=== PATIENT | female | born 2000 | race Caucasian/White ===

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

== ENCOUNTER 2022-02-27 08:47 | Outpatient (REF) | payer OTHER, SELFPAY ==
[2022-02-27 09:09] LABS: MANUAL DIFF FLAG NO
[2022-02-27 09:38] LABS: Basophils Percent Auto 0.2 % (0-2); Eosinophils Absolute Auto 0.1 X10*3/uL (0.0-0.4); Eosinophils Percent Auto 0.9 % (0-4); Hematocrit 41.4 % (37.0-47.0); Hemoglobin 12.6 g/dl (12.0-16.0); Imm Gran Abs Auto 0.04 X10*3/uL (0.00-0.03); Imm Gran Pct Auto 0.3 % (0.0-0.4); Lymphocytes Absolute Auto 1.9 X10*3/uL (1.2-4.9); Lymphocytes Percent Auto 16.4 % (20-40); Mean Corpuscular HGB Conc 30.4 g/dl (31.0-35.0); Mean Corpuscular Hemoglobin 24.6 pg (27.0-33.0); Mean Corpuscular Volume 80.9 fL (80.0-98.0); Mean Platelet Volume 10.1 fL (9.4-12.3); Monocytes Absolute Auto 0.7 X10*3/uL (0.1-1.2); Neutrophils Absolute Auto 8.9 x10*3/uL (2.0-8.3); Neutrophils Percent Auto 76.2 % (45-73); Platelet Count 296 X10*3/uL (160-400); Red Blood Count 5.12 X10*6/uL (4.20-5.50); Red Cell Distribution Width 14.9 % (11.0-16.0); White Blood Count 11.6 X10*3/uL (4.8-10.8)
[2022-02-27 10:01] LABS: Estimated Average Glucose 108 mg/dL; Hemoglobin A1c % 5.4 %
[2022-02-27 10:39] LABS: Alanine Aminotransferase 19 U/L (0-31); Albumin Level 3.6 g/dL (3.5-5.0); Alkaline Phosphatase 66 U/L (39-117); Amylase 88 U/L (28-100); Anion Gap 10 (12-20); Aspartate Amino Transferase 8 U/L (5-31); Bilirubin Direct 0.2 mg/dL (0.0-0.5); Bilirubin Total 0.7 mg/dL (0.0-1.0); Blood Urea Nitrogen 12 mg/dL (9-16); Calcium 8.9 mg/dL (8.4-10.2); Carbon Dioxide 24 mmol/L (22-29); Chloride 109 mmol/L (96-108); Estimated Glomerular Filt Rate > 60; Glucose Random 92 mg/dL (60-115); Sodium 139 mmol/L (135-145); Total Protein 6.6 g/dL (6.5-8.0)
== END 2022-02-27 08:48 | disposition home or self-care (01) ==
LOC: HO.LAB 08:47
PROVIDERS: Absent Provider Nurse Practitioner Family; PCP Nurse Practitioner Family; Visit Provider Nurse Practitioner
DX: R10.13 Epigastric pain (principal)
CPT/HCPCS: 36415; 80048; 80076; 82150; 83036; 85025

== ENCOUNTER 2022-04-13 08:08 | Outpatient (REF) | payer OTHER, SELFPAY ==
--- NOTE | ~2022-04-13 | US_ITS ---
EXAMINATION: US ABDOMEN COMPLETE CLINICAL INFORMATION: Epigastric pain. COMPARISON: CT abdomen and pelvis and ultrasound abdomen complete 08/22/2017. TECHNIQUE: Real-time imaging of the abdominal viscera. FINDINGS: PANCREAS: Normal. ABDOMINAL AORTA: The proximal, mid, and distal segments are normal in caliber. INFERIOR VENA CAVA: Visualized portions are normal. LIVER: Normal. The liver is normal in size. The liver contour is normal. Parenchymal echogenicity is normal. No focal hepatic lesion. There is no intrahepatic biliary duct dilatation seen. GALLBLADDER: Normal. The gallbladder is physiologically distended without evidence of stones, sludge, polyps, wall thickening or pericholecystic fluid. COMMON BILE DUCT: Normal in caliber measuring 0.3 cm in diameter. RIGHT KIDNEY: Normal. No hydronephrosis. No renal calculi or focal parenchymal lesions. The kidney measures 12.2 cm in maximum dimension. LEFT KIDNEY: There is an echogenic stone in the lower pole measuring 0.8 x 0.6 x 0.8 cm. A dromedary hump is seen in midpole. Echogenic cortical calcification in midpole measures 0.3 x 0.4 x 0.3 cm. No hydronephrosis or focal parenchymal lesions. The kidney measures 11.5 cm in maximum dimension. SPLEEN: Normal. The spleen measures 11.0 cm in maximum dimension. FREE FLUID: None. US/US abdomen complete IMPRESSION: Nonobstructive echogenic stone and midpole calcification, left kidney.
== END 2022-04-13 08:09 | disposition home or self-care (01) ==
LOC: HO.US 08:08
PROVIDERS: Visit Provider Nurse Practitioner Family
DX: F81.9 Developmental disorder of scholastic skills, unspecified (principal); R10.13 Epigastric pain
CPT/HCPCS: 76700

== ENCOUNTER 2023-12-27 13:02 | Emergency (ER) | payer SELFPAY ==
--- NOTE | ~2023-12-27 | CT_ITS ---
EXAMINATION: CT HEAD WITHOUT CONTRAST CLINICAL INFORMATION: Possible seizure COMPARISON: None available. TECHNIQUE: Contiguous axial imaging was performed from the skull base to vertex without intravenous administration of contrast. This CT examination was performed using dose optimization techniques as appropriate, variously including the following: *Automated exposure control *Adjustment of mA and/or kV according to patient size (this includes techniques or standardized protocols for targeted exams where dose is matched to indication/reason for exam; i.e. extremities or head) *Use of iterative reconstruction technique DLP: 657 mGy-cm FINDINGS: There is no acute intra-axial, extra-axial bleed, masses or midline shift. There is no acute infarction evolution. There is no edema augustine to white matter differentiation is maintained normal. The lateral ventricles are symmetrical in size and configuration without enlargement. No abnormality seen in the posterior fossa on the temporal lobes. Bone windows reveal no calvarial abnormality. There is no scalp soft tissue abnormality. There is complete opacification of left maxillary sinus with mild mucoperiosteal thickening involving bilateral frontal, ethmoidal and sphenoidal sinuses. CT/CT head/brain wo IV con IMPRESSION: 1. No acute intracranial process seen. 2. Chronic pansinusitis. Complete opacification of left maxillary sinus.
[2023-12-27 13:14] VITALS: BP 142/86; BP 179/122; PULSE 114; PULSE 97; RESP 18; TEMP 37.2; O2SAT 97; O2SAT 98; BMI 47.2
--- NOTE | 2023-12-27 13:21 | PC.NURSE ---
patient currently a&o- speaking in full sentences and answering questions appropriately, pt hypertensive, no c/o pain or discomfort, stated she feels anxious and does feel this at times. seizure precautions placed, will continue to monitor
--- NOTE | 2023-12-27 13:28 | ED.GENADULT ---
HPI - General Adult General Chief complaint: General Medical Stated complaint: ?SZ Time Seen by Provider: 12/27/23 13:23 Source: patient, family and EMS Mode of arrival: EMS Limitations: no limitations History of Present Illness HPI narrative: Patient was told earlier in the day that she would be transitioning out of her day program, this upset her. Later in the day she felt hot and took off her sweater, shortly thereafter she did not feel well but states that she did not lose consciousness. According to EMS bystanders noted seizure activity and patient was post ictal afterwards. Onset (ago): minute(s) Associated symptoms: denies other symptoms Related Data Allergies Allergy/AdvReac Type Severity Reaction Status Date / Time No Known Allergies Allergy Verified 12/27/23 13:14 Review of Systems Review of Systems: Yes all other systems are reviewed and are negative Neurologic: Denies Sensory deficit (Neuro) PMFSH Past Medical History Medical History Hypertension Obese Social History Social History Smoked in Last 30 Days: No Use of substances other than those prescribed or required for medical reasons: No Advance Directives: No Advance Directives Information Provided: Yes Patient : No Physical Exam ED Vital Signs: Vital Signs - 24 hr 12/27/23 13:14 12/27/23 19:08 Temperature 98.9 F 98.1 F Pulse Rate 97 94 Respiratory Rate 18 16 Blood Pressure 179/122 H 146/81 H Pulse Oximetry 97 94 Oxygen Delivery Method Room Air Room Air BMI result Body Mass Index 47.2 Const Other: obese female with special needs in no acute distress Nutritional Appearance: obese Orientation/consciousness: oriented to person Limitations: no limitations HENMT Head: Yes normal to inspection Ears: external ears normal General nose exam: Normal external nose present Mouth: Normal oral and palatal mucosa present and oropharynx normal Throat: Yes posterior oropharynx normal Eyes General: appearance normal, both eyes and all related structures Neck Neck: Yes normal visual inspection Chest Chest palpation & inspection: normal inspection of the chest Resp Auscultation: clear to auscultation bilaterally Cardio Jugular venous distension: no JVD Rate: regular rate Rhythm: regular rhythm Heart sounds: S1 normal heart sound present and S2 normal heart sound present GI Inspection: Yes normal to inspection Palpation (GI): Soft to palpation, nontender and No hepatosplenomegaly present Auscultation: normal bowel sounds General: Yes no CVA tenderness Back/Spine/Pelvis Back: no CVA tenderness Skin General skin exam: no rashes or lesions noted Neuro Other: nonfocal neuro exam General: oriented to person Cranial nerves: Yes CN's II-XII intact bilaterally Motor exam (neuro): 5/5 motor strength present throughout Sensory Exam: No Sensory deficit (Neuro) Extrem General: Yes normal to inspection Psych Appearance: grossly normal Course Reevaluation(s) Reevaluation #1: I doubt this is seizure more likely pseudoseizure or anxiety will dc home Time: 18:33 Medical Decision Making Differential Diagnosis Differential Diagnoses: The differential diagnosis associated with the presentation includes (seizure, syncope, arrhythmia, anxiety, pseudoseizure) Admission/Observation Consideration of admission/observation: Escalation of care including admission/observation considered (Upon arrival patient considered for admission) Lab Data MDM Lab Attestation statement: I reviewed the patient's lab results. urine is contaminated will not treat 12/27/23 15:33 12/27/23 15:33 Labs: Lab Results 12/27/23 12/27/23 12/27/23 Range/Units 15:33 17:37 17:38 WBC 9.8 (4.8-10.8) X10*3/uL RBC 5.69 H (4.20-5.50) X10*6/uL Hgb 14.1 (12.0-16.0) g/dl Hct 45.8 (37.0-47.0) % MCV 80.5 (80.0-98.0) fL MCH 24.8 L (27.0-33.0) pg MCHC 30.8 L (31.0-35.0) g/dl RDW 15.7 (11.0-16.0) % Plt Count 316 (160-400) X10*3/uL MPV 9.8 (9.4-12.3) fL Immature Gran % (Auto) 0.2 (0.0-0.4) % Neut % (Auto) 64.5 (45-73) % Lymph % (Auto) 25.8 (20-40) % [place] % (Auto) 5.8 (2-11) % Eos % (Auto) 3.3 (0-4) % Baso % (Auto) 0.4 (0-2) % Lymph # (Auto) 2.5 (1.2-4.9) X10*3/uL [place]eller # (Auto) 0.6 (0.1-1.2) X10*3/uL Eos # (Auto) 0.3 (0.0-0.4) X10*3/uL Baso # (Auto) 0.0 (0.0-0.2) X10*3/uL Abs Immat Gran (auto) 0.02 (0.00-0.03) X10*3/uL Absolute Neuts (auto) 6.3 (2.0-8.3) x10*3/uL Absolute Nucleated RBC 0.000 (0.0-0.012) X10*3/uL Nucleated RBC % (auto) 0.0 (0.0-0.2) /100WBC Sodium 142 (135-145) mmol/L Potassium 3.9 (3.3-5.1) mmol/L Chloride 108 (96-108) mmol/L Carbon Dioxide 26 (22-29) mmol/L Anion Gap 12 (12-20) BUN 14 (9-16) mg/dL Creatinine 0.76 (0.5-1.4) mg/dL Estim Creat Clear Calc 136.9 Estimated GFR > 60 Random Glucose 84 (60-115) mg/dL Calcium 9.0 (8.4-10.2) mg/dL Urine Color Yellow Urine Appearance Clear Urine pH 7.0 (5.0-9.0) Ur Specific [place] 1.015 (1.005-1.025) Urine Protein Negative (Neg-Trace) mg/dL Urine Glucose (UA) Negative (Negative) mg/dL Urine Ketones Negative (Negative) mg/dL Urine Blood Negative (Negative) Urine Nitrite Negative (Negative) Ur Leukocyte Esterase Trace H (Negative) Urine RBC 0-2 (0-2) /HPF Urine WBC 6-10 H (0-5) /HPF Ur Squamous Epith Cells 3-5 (0-2) /HPF Urine Bacteria 1+ (None Seen) Hyaline Casts 0-2 (0-2) /LPF Urine Test NEGATIVE (NEGATIVE) Independent Interpretation I performed an independent interpretation of an: EKG (sinus 85, no st or twave changes) and CT Scan (head: old changes no blood no mass) Radiology Impression Discussion of test interpretation with radiology: I have reviewed the radiologist's reading. Independent Historian Clinical information obtained from an independent historian. History obtained from or confirmed by: Parent and EMS Chronic Conditions Patient?s care impacted by: Other (special needs) Discharge Plan Discharge Clinical Impression: Seizure, Anxiety Patient Disposition: Home, Self-Care Instructions: Nonepileptic Seizures (ED), Anxiety (ED) Referrals: Tracy Dunbar [Primary Care Provider] - 5 days
--- NOTE | 2023-12-27 13:29 | ECG_ITS ---
Test Reason : QUESTION SYNCOPE Blood Pressure : / mmHG Vent. Rate : 086 BPM Atrial Rate : 086 BPM P-R Int : 128 ms QRS Dur : 094 ms QT Int : 388 ms P-R-T Axes : 028 003 054 degrees QTc Int : 464 ms Normal sinus rhythm Minimal voltage criteria for LVH, may be normal variant ( R in aVL ) Borderline ECG When compared with ECG of 05-MAY-2021 20:09, No significant change was found Referred By: Anibal Burger Electronically Signed By:JOHANA FINCH
--- NOTE | 2023-12-27 14:51 | PC.NURSE ---
phlebotomy has been called to obtain labs, provider has been notified
[2023-12-27 15:36] LABS: MANUAL DIFF FLAG NO
[2023-12-27 15:42] LABS: Basophils Percent Auto 0.4 % (0-2); Eosinophils Absolute Auto 0.3 X10*3/uL (0.0-0.4); Eosinophils Percent Auto 3.3 % (0-4); Hematocrit 45.8 % (37.0-47.0); Hemoglobin 14.1 g/dl (12.0-16.0); Imm Gran Abs Auto 0.02 X10*3/uL (0.00-0.03); Imm Gran Pct Auto 0.2 % (0.0-0.4); Lymphocytes Absolute Auto 2.5 X10*3/uL (1.2-4.9); Lymphocytes Percent Auto 25.8 % (20-40); Mean Corpuscular HGB Conc 30.8 g/dl (31.0-35.0); Mean Corpuscular Hemoglobin 24.8 pg (27.0-33.0); Mean Corpuscular Volume 80.5 fL (80.0-98.0); Mean Platelet Volume 9.8 fL (9.4-12.3); Monocytes Absolute Auto 0.6 X10*3/uL (0.1-1.2); Monocytes Percent Auto 5.8 % (2-11); Neutrophils Absolute Auto 6.3 x10*3/uL (2.0-8.3); Neutrophils Percent Auto 64.5 % (45-73); Platelet Count 316 X10*3/uL (160-400); Red Blood Count 5.69 X10*6/uL (4.20-5.50); Red Cell Distribution Width 15.7 % (11.0-16.0); White Blood Count 9.8 X10*3/uL (4.8-10.8)
[2023-12-27 15:49] LABS: Anion Gap 12 (12-20); Blood Urea Nitrogen 14 mg/dL (9-16); Carbon Dioxide 26 mmol/L (22-29); Chloride 108 mmol/L (96-108); Creatinine Clr Calc Pharmacy 136.9; Estimated Glomerular Filt Rate > 60; Glucose Random 84 mg/dL (60-115); Potassium 3.9 mmol/L (3.3-5.1); Sodium 142 mmol/L (135-145)
[2023-12-27 17:46] LABS: Appearance Urine Clear; Color Urine Yellow; Glucose Urine UA Negative (Negative); Leukocyte Esterase Urine Trace (Negative); Nitrite Urine Negative (Negative); Specific Gravity - Urine 1.015 (1.005-1.025); UMIC TRIGGER UACC YES; Urine Blood Negative (Negative); Urine Ketones Negative (Negative); Urine Protein Negative (Neg-Trace)
[2023-12-27 17:48] LABS: UPreg QC Valid YES; Urine Pregnancy NEGATIVE (NEGATIVE)
[2023-12-27 17:50] LABS: Bacteria Urine 1+ (None Seen); Hyaline Casts Urine 0-2 /LPF (0-2); RBC Urine 0-2 /HPF (0-2); UACC Culture Trigger YES
[2023-12-27 19:08] VITALS: BP 146/81; PULSE 94; RESP 16; TEMP 36.7; O2SAT 94
== END 2023-12-27 20:01 | disposition home or self-care (01) ==
PROVIDERS: Emergency Provider Emergency Medicine; PCP Nurse Practitioner Family
DX: R56.9 Unspecified convulsions (principal); F41.9 Anxiety disorder, unspecified; I10 Essential (primary) hypertension
CPT/HCPCS: 36415; 70450; 80048; 81001; 81025; 85025; 87086; 93005; 99284

== ENCOUNTER → 2023-12-27 13:29 | Outpatient (BNV) | payer SELFPAY | PROVIDERS: Emergency Provider Emergency Medicine; PCP Nurse Practitioner Family; Visit Provider Internal Medicine | DX: R55 Syncope and collapse (principal) | CPT/HCPCS: 93010 ==

== ENCOUNTER 2024-07-26 07:38 | Emergency (ER) | payer OTHER, SELFPAY ==
--- NOTE | ~2024-07-26 | CT_ITS ---
EXAMINATION: CT ABDOMEN AND PELVIS WITHOUT CONTRAST CLINICAL INFORMATION: Left flank pain. Rule out stone COMPARISON: August 22, 2017 TECHNIQUE: Multidetector volumetric imaging was performed from the superior aspect of the liver through the pubic symphysis. Sagittal and coronal reformatted images were obtained on the technologist's workstation. This CT examination was performed using dose optimization techniques as appropriate, variously including the following: *Automated exposure control *Adjustment of mA and/or kV according to patient size (this includes techniques or standardized protocols for targeted exams where dose is matched to indication/reason for exam; i.e. extremities or head) *Use of iterative reconstruction technique DLP: 1141 mGy-cm FINDINGS: LUNG BASES: The visualized lung bases are unremarkable. LIVER, GALLBLADDER, AND BILIARY TREE: Liver is of low attenuation due to hepatic steatosis, without intrahepatic masses or ductal dilatation. The gallbladder is unremarkable with no evidence of radiopaque gallstones, gallbladder wall thickening, or obvious pericholecystic inflammatory changes. PANCREAS: Unremarkable. SPLEEN: Unremarkable. ADRENAL GLANDS: Unremarkable. KIDNEYS AND URETERS: Right kidney is unremarkable. Left kidney revealed mild hydroureteronephrosis due to obstruction of left renal pelvis by 0.7 x 0.9 cm calculus with attenuation of 1380 HU there is very mild perinephric stranding, the left ureters are not dilated BLADDER: Unremarkable. GASTROINTESTINAL TRACT: There is small hiatal hernia.. Stomach. Loops of small bowel and colon are unremarkable appendix is not clearly identified. No evidence of diverticulitis, colitis, diverticulosis. ABDOMINAL WALL: No significant hernia is appreciated. LYMPH NODES: Normal. VASCULAR: Unremarkable. PELVIC VISCERA: Unremarkable. OSSEOUS STRUCTURES: Unremarkable. CT/CT abdomen pelvis wo IV con IMPRESSION: 1. Obstructing calculus in the left renal pelvis with mild hydroureteronephrosis and perinephric stranding. 2. Hepatic steatosis. 3. Small hiatal hernia. Fleischner guidelines were followed. Electronically signed by: Edward Ervin MD 07/26/2024 11:49 AM EDT
[2024-07-26 07:50] VITALS: BP 207/155; PULSE 106; RESP 22; TEMP 37; O2SAT 98; BMI 53.1
[2024-07-26 08:09] VITALS: BP 180/118; PULSE 111; RESP 20; O2SAT 98
--- NOTE | 2024-07-26 08:20 | PC.NURSE ---
pateint arrives through external triage with cc of left flank pain for the last few days, patient presents dry heaving, mom states she has been throwing up all morning. patient endorses a hx of kidney stones and states it feels like she is experiencing another one. states she has difficulty urinating, denies burning or blood in urine, endorsing 10/10 pain right now, denies fevers or recent sick contacts, LSCTA, abdomen soft tender to palpation, 20g PIV placed in LAC by this rn, blood work sent to lab, patient attempted x2 to give urine sample, unable to provide one at this time. provider made aware of patient pain levels and vomiting, will be in to assess.
[2024-07-26 08:22] LABS: MANUAL DIFF FLAG NO
[2024-07-26 08:23] LABS: Basophils Absolute Auto 0.1 X10*3/uL (0.0-0.2); Basophils Percent Auto 0.4 % (0-2); Eosinophils Absolute Auto 0.1 X10*3/uL (0.0-0.4); Eosinophils Percent Auto 0.5 % (0-4); Hematocrit 42.4 % (37.0-47.0); Hemoglobin 13.6 g/dl (12.0-16.0); Imm Gran Abs Auto 0.05 X10*3/uL (0.00-0.03); Imm Gran Pct Auto 0.4 % (0.0-0.4); Lymphocytes Absolute Auto 1.5 X10*3/uL (1.2-4.9); Lymphocytes Percent Auto 11.7 % (20-40); Mean Corpuscular HGB Conc 32.1 g/dl (31.0-35.0); Mean Corpuscular Hemoglobin 25.5 pg (27.0-33.0); Mean Corpuscular Volume 79.5 fL (80.0-98.0); Mean Platelet Volume 9.9 fL (9.4-12.3); Monocytes Absolute Auto 0.6 X10*3/uL (0.1-1.2); Monocytes Percent Auto 4.8 % (2-11); Neutrophils Absolute Auto 10.7 x10*3/uL (2.0-8.3); Neutrophils Percent Auto 82.2 % (45-73); Platelet Count 358 X10*3/uL (160-400); Red Blood Count 5.33 X10*6/uL (4.20-5.50); Red Cell Distribution Width 15.9 % (11.0-16.0); White Blood Count 13.1 X10*3/uL (4.8-10.8)
[2024-07-26 08:39] LABS: Alanine Aminotransferase 44 U/L (0-31); Albumin Level 4.1 g/dL (3.5-5.0); Alkaline Phosphatase 72 U/L (39-117); Anion Gap 15 (12-20); Aspartate Amino Transferase 23 U/L (5-31); Bilirubin Direct 0.2 mg/dL (0.0-0.5); Bilirubin Total 0.5 mg/dL (0.0-1.0); Blood Urea Nitrogen 16 mg/dL (9-16); Calcium 9.4 mg/dL (8.4-10.2); Carbon Dioxide 20 mmol/L (22-29); Chloride 110 mmol/L (96-108); Creatinine Clr Calc Pharmacy 107.8; Estimated Glomerular Filt Rate > 60; Glucose Random 147 mg/dL (60-115); Lipase 13 U/L (8-78); Sodium 141 mmol/L (135-145); Total Protein 8.1 g/dL (6.5-8.0)
--- NOTE | 2024-07-26 09:03 | ED.ABDPAIN ---
HPI - Abdominal Pain General Chief Complaint: Abdominal Pain Stated Complaint: l hip pain-vomiting Time Seen by Provider: 07/26/24 09:02 Source: patient and family Limitations: no limitations History of Present Illness ED Provider: Dr. Ankur Salcedo HPI narrative: 24-year-old history hypertension which is and kidney stones who presents emergency department for evaluation of left flank pain times 1-1/2 weeks. She states that the pain was mild but last night at 23:00 hours the pain became worse. She states that the pain is a constant, sharp pain is if someone is kicking your in her left side. The pain is 9/10 at its worst. She had associated nausea and vomiting. She denied fever, chills, rhinorrhea, sore throat, chest pain, shortness of breath. She denied frequency, urgency or dysuria. She states the pain feels similar to her kidney stone pain that she had in the past. Related Data Previous Rx's ?Medication ?Instructions ?Recorded ketorolac 10 mg tablet 10 mg PO Q6H PRN pain 5 days #20 07/26/24 tabs lisinopril 10 mg tablet 10 mg PO DAILY 90 days #90 tabs 07/26/24 morphine 15 mg immediate release 15 mg PO Q6H PRN pain #10 tabs 07/26/24 tablet morphine 15 mg immediate release 15 mg PO Q8H PRN pain #10 tabs 07/26/24 tablet ondansetron 4 mg disintegrating 4 mg PO Q6-8H PRN nausea and 07/26/24 tablet vomiting #14 tabs Allergies Allergy/AdvReac Type Severity Reaction Status Date / Time No Known Allergies Allergy Verified 07/26/24 07:53 Review of Systems Review of Systems Yes all other systems are reviewed and are negative [facility] Past Medical History Medical History Hypertension Obese Social History Social History Smoked in Last 30 Days: No Use of substances other than those prescribed or required for medical reasons: No Advance Directives: No Advance Directives Information Provided: No Do you have a plan to hurt others: No Plan Physical Exam ED Vital Signs: Vital Signs - 24 hr 07/26/24 07:50 07/26/24 08:09 07/26/24 09:11 Temperature 98.6 F Pulse Rate 106 H 111 H 90 Respiratory Rate 22 H 20 16 Blood Pressure 207/155 H 180/118 H 185/130 H Pulse Oximetry 98 98 Oxygen Delivery Method Room Air Room Air 07/26/24 11:09 Temperature 98.2 F Pulse Rate 86 Respiratory Rate 16 Blood Pressure 141/89 H Pulse Oximetry 96 Oxygen Delivery Method Room Air BMI result Body Mass Index 53.1 Vital signs initially revealed an elevated blood pressure 207/155 but this improved to 140 1/89 after treatment of her pain Exam: General: Awake, alert in no distress, weight 127.6 kg, elevated BMI 53.2 Head: Normocephalic, atraumatic EENT: PERRL, Lids normal, sclera normal, conjunctiva normal, nose normal , ears normal, throat without erythema or exudates Neck: Supple, no adenopathy Lung: breath sounds symmetric, no wheezing, rales or rhonchi Chest: symmetric movement, nontender Heart: regular rate and rhythm, normal S1, S2 no murmurs or rubs Abdomen: soft, non-tender, nondistended, normal bowel sounds Back: no vertebral tenderness, no CVAT Extremities: no deformities, moves all extremities symmetrically Neuro: Awake, alert, oriented, normal speech, cranial nerves intact, moves all extremities symmetrically Psych: Pleasant, cooperative Medical Decision Making Medical Decision Making MDM Narrative: 24-year-old history hypertension which is and kidney stones who presents emergency department for evaluation of left flank pain times 1-1/2 weeks. She states that the pain was mild but last night at 23:00 hours the pain became worse, 9/10 and similar to kidney stone pain that she had in the past. She had associated nausea and vomiting but denied frequency, urgency or dysuria. She denied fever or chills. Patient was untreated hypertension and she did have elevated blood pressures which improved after she received IV Toradol for pain. Physical examination did reveal an elevated BMI of 53.2 otherwise was unremarkable. Differential diagnosis: ?Includes but is not limited to pyelonephritis, kidney stone, ureteral stone, electrolyte abnormalities, anemia Course: 13:46 My interpretation patient's laboratory evaluation is as follows: White blood cell count was elevated 13,100. Patient's glucose was elevated 146. Urine test was negative. Urinalysis was positive for blood and leukocyte esterase. Microscopic revealed greater than 20 RBCs. Patient was 0-5 WBCs, 1+ bacteria and 6-10 squamous cells-this is a non clean catch specimen. CT scan abdomen pelvis without IV contrast revealed an obstructing calculus in the left renal pelvis with mild hydronephrosis and perinephric stranding. The stone measures 7 x 9 mm. 14:11 I did discuss the patient's presentation over tiger text with the covering urologist, Dr. Zamora. The plan will be to discharge the patient home with pain medications and have her follow up as an outpatient for further treatment. The patient will be discharged home with prescriptions for Toradol 10 mg 3 times a day as needed for pain, Zofran 4 mg ODT q.6 hours as needed for nausea vomiting and for pain not relieved by Toradol and Tylenol the patient was given a prescription for morphine 15 mg every 6 hours as needed. Patient was advised to strain her urine and increase your fluid intake and to contact Dr. Zamora's office on Saturday morning. The patient does have untreated hypertension and does not have a primary care doctor therefore I am going to prescribe lisinopril 10 mg once a day with a 90 day supply. She will be given information on PCPs as well. Admission/Observation Consideration of admission/observation: Escalation of care including admission/observation considered (Yes) Consult Healthcare Provider Management of the patient was discussed with: Developmental Specialist Urologist, Dr. Zamora Lab Data MDM Lab Attestation statement: I reviewed the patient's lab results. 07/26/24 08:12 07/26/24 08:12 Labs: Lab Results 07/26/24 07/26/24 Range/Units 08:12 10:53 WBC 13.1 H (4.8-10.8) X10*3/uL RBC 5.33 (4.20-5.50) X10*6/uL Hgb 13.6 (12.0-16.0) g/dl Hct 42.4 (37.0-47.0) % MCV 79.5 L (80.0-98.0) fL MCH 25.5 L (27.0-33.0) pg MCHC 32.1 (31.0-35.0) g/dl RDW 15.9 (11.0-16.0) % Plt Count 358 (160-400) X10*3/uL MPV 9.9 (9.4-12.3) fL Immature Gran % (Auto) 0.4 (0.0-0.4) % Neut % (Auto) 82.2 H (45-73) % Lymph % (Auto) 11.7 L (20-40) % Denali % (Auto) 4.8 (2-11) % Eos % (Auto) 0.5 (0-4) % Baso % (Auto) 0.4 (0-2) % Lymph # (Auto) 1.5 (1.2-4.9) X10*3/uL [place] # (Auto) 0.6 (0.1-1.2) X10*3/uL Eos # (Auto) 0.1 (0.0-0.4) X10*3/uL Baso # (Auto) 0.1 (0.0-0.2) X10*3/uL Abs Immat Gran (auto) 0.05 H (0.00-0.03) X10*3/uL Absolute Neuts (auto) 10.7 H (2.0-8.3) x10*3/uL Absolute Nucleated RBC 0.000 (0.0-0.012) X10*3/uL Nucleated RBC % (auto) 0.0 (0.0-0.2) /100WBC Sodium 141 (135-145) mmol/L Potassium 4.0 (3.3-5.1) mmol/L Chloride 110 H (96-108) mmol/L Carbon Dioxide 20 L (22-29) mmol/L Anion Gap 15 (12-20) BUN 16 (9-16) mg/dL Creatinine 1.03 (0.5-1.4) mg/dL Estim Creat Clear Calc 107.8 Estimated GFR > 60 Random Glucose 147 H (60-115) mg/dL Calcium 9.4 (8.4-10.2) mg/dL Total Bilirubin 0.5 (0.0-1.0) mg/dL Direct Bilirubin 0.2 (0.0-0.5) mg/dL AST 23 (5-31) U/L ALT 44 H (0-31) U/L Alkaline Phosphatase 72 (39-117) U/L Total Protein 8.1 H (6.5-8.0) g/dL Albumin 4.1 (3.5-5.0) g/dL Lipase 13 (8-78) U/L Urine Color Yellow Urine Appearance Cloudy Urine pH 7.0 (5.0-9.0) Ur Specific Vera 1.020 (1.005-1.025) Urine Protein 30 (1+) H (Neg-Trace) mg/dL Urine Glucose (UA) Negative (Negative) mg/dL Urine Ketones Negative (Negative) mg/dL Urine Blood Moderate (2+) H (Negative) Urine Nitrite Negative (Negative) Ur Leukocyte Esterase Small (1+) H (Negative) Urine RBC >20 H (0-2) /HPF Urine WBC 0-5 (0-5) /HPF Ur Squamous Epith Cells 6-10 (0-2) /HPF Urine Bacteria 1+ (None Seen) Hyaline Casts 0-2 (0-2) /LPF Urine Test NEGATIVE (NEGATIVE) Radiology Impression Discussion of test interpretation with radiology: I have reviewed the radiologist's reading. Radiologist Impression: CT abdomen pelvis wo IV con KIDNEYS AND URETERS: Right kidney is unremarkable. Left kidney revealed mild hydroureteronephrosis due to obstruction of left renal pelvis by 0.7 x 0.9 cm calculus with attenuation of 1380 HU there is very mild perinephric stranding, the left ureters are not dilated BLADDER: Unremarkable. GASTROINTESTINAL TRACT: There is small hiatal hernia.. Stomach. Loops of small bowel and colon are unremarkable appendix is not clearly identified. No evidence of diverticulitis, colitis, diverticulosis. ABDOMINAL WALL: No significant hernia is appreciated. IMPRESSION: 1. Obstructing calculus in the left renal pelvis with mild hydroureteronephrosis and perinephric stranding. 2. Hepatic steatosis. 3. Small hiatal hernia. Dictated By: Edward Ervin MD Independent Historian Clinical information obtained from an independent historian. History obtained from or confirmed by: Parent Prescription Management I considered prescription management with: Pain Medication and Other (Antiemetics, anti hypertensives your) Chronic Conditions Patient?s care impacted by: Hypertension Medications Administered Discontinued Medications Generic Name Dose Route Start Last Admin Trade Name Freq PRN Reason Stop Dose Admin Sodium Chloride 1,000 mls @ 999 mls/hr 07/26/24 09:03 07/26/24 11:14 Ns IV 07/26/24 10:03 Infused .Q1H1M STA Infusion Ketorolac Tromethamine 15 mg 07/26/24 09:03 07/26/24 09:08 Ketorolac Tromethamine 15 Mg/Ml Vial IVPUSH 07/26/24 09:04 15 mg ONCE STA Administration Ondansetron HCl 4 mg 07/26/24 09:03 07/26/24 09:08 Ondansetron Hcl 4 Mg/2 Ml Vial IVPUSH 07/26/24 09:04 4 mg ONCE ONE Administration Discharge Plan Discharge Clinical Impression: Calculus of renal pelvis, Essential hypertension, Renal colic on left side Patient Disposition: Home, Self-Care Instructions: How to Strain Your Urine (ED), Hypertension (ED), Ureteral Stones (ED) Additional Instructions: Your blood work was unremarkable. Your urine did reveal red blood cells which is consistent with kidney stones. Your urine test was negative. The CT scan of your abdomen pelvis without IV contrast revealed a 7 x 9 mm stone in your left renal pelvis this is causing your pain. Take Toradol (ketorolac) 10 mg every 6 hours as needed for pain. Take Tylenol (acetaminophen) 2 pills every 6 hours as needed for pain. For pain not relieved by Toradol (ketorolac) or Tylenol take morphine 15 mg pills, 1 pill every 6 hours as needed for pain. This medication will make you sleepy, do not drive or work while taking this medication. Take Zofran ODT 4 mg pills, 1 pill dissolved in your mouth every 8 hours as needed for nausea and vomiting. Morphine is a narcotic medication and can be addicting. If you are concerned about addiction you can ask the pharmacist for less pills or do not get this prescription filled. Strain your urine to try to catch the stone. Call Dr. Zamora's office on Saturday to make an appointment early next week for further treatment of your kidney stone. Follow-up with your doctor in 2 days. Please return to the emergency department if your symptoms get worse or if you develop any symptoms that are concerning to you. You had very elevated blood pressures here in the emergency department therefore I am treating you for high blood pressure with lisinopril 10 mg once a day. I did give you a 90 day supply. Call your doctor to try to schedule a follow-up appointment within 2-4 weeks to get a recheck of your blood pressure. Prescriptions: New ketorolac 10 mg tablet 10 mg PO Q6H PRN (Reason: pain) 5 Days Qty: 20 0RF morphine 15 mg tablet 15 mg PO Q6H PRN (Reason: pain) Qty: 10 0RF Rx Instructions: Patient may request partial fill; Partial Fill upon patient request. ondansetron 4 mg tablet,disintegrating 4 mg PO Q6-8H PRN (Reason: nausea and vomiting) Qty: 14 0RF morphine 15 mg tablet 15 mg PO Q8H PRN (Reason: pain) Qty: 10 0RF Rx Instructions: Partial Fill upon patient request. lisinopril 10 mg tablet 10 mg PO DAILY 90 Days Qty: 90 0RF Referrals: Beau Zamora MD [Physician] - 1 week (9 mL X 7 mm left renal pelvic stone, renal colic) Print Language: Georgian
[2024-07-26] MEDS: ondansetron HCL 4 MG/2 ML VIAL IVPUSH (09:08)
[2024-07-26] MEDS: Ketorolac Tromethamine 15 MG/ML VIAL IVPUSH (09:08)
[2024-07-26] MEDS: 0.9 % Sodium Chloride 1,000 ML 999 ML IV (09:09)
[2024-07-26 09:11] VITALS: BP 185/130; PULSE 90; RESP 16
--- NOTE | 2024-07-26 09:15 | PC.NURSE ---
patient BP noted to be consistently elevated, even while resting comfortably on stretcher, per mom BP has been running high lately, they have been unable to get into a primary care physician due to insurance issues, patient does not currently take medications for BP at home
[2024-07-26 11:03] LABS: Appearance Urine Cloudy; Color Urine Yellow; Glucose Urine UA Negative (Negative); Leukocyte Esterase Urine Small (1+) (Negative); Nitrite Urine Negative (Negative); UMIC TRIGGER UACC YES; Urine Blood Moderate (2+) (Negative); Urine Ketones Negative (Negative); Urine Protein 30 (1+) mg/dL (Neg-Trace)
[2024-07-26 11:05] LABS: UPreg QC Valid YES; Urine Pregnancy NEGATIVE (NEGATIVE)
[2024-07-26 11:09] VITALS: BP 141/89; PULSE 86; RESP 16; TEMP 36.8; O2SAT 96
--- NOTE | 2024-07-26 11:14 | PC.NURSE ---
pt to CT
[2024-07-26 11:26] LABS: Bacteria Urine 1+ (None Seen); Hyaline Casts Urine 0-2 /LPF (0-2); RBC Urine >20 /HPF (0-2); UACC Culture Trigger YES; WBC Urine 0-5 /HPF (0-5)
[2024-07-26 14:33] VITALS: BP 146/107; PULSE 91; RESP 16; TEMP 37; O2SAT 98
== END 2024-07-26 14:39 | disposition home or self-care (01) ==
PROVIDERS: Emergency Provider Emergency Medicine Emergency Medical Services
DX: N20.0 Calculus of kidney (principal); R11.2 Nausea with vomiting, unspecified; I10 Essential (primary) hypertension; Z79.899 Other long term (current) drug therapy
CPT/HCPCS: 36415; 74176; 80053; 81001; 81003; 81025; 82248; 83690; 85025; 87086; 96361; 96374; 96375; 99284; 99285; J1885; J2405

== ENCOUNTER 2024-07-29 14:16 | Outpatient (AMB) | payer OTHER, SELFPAY ==
--- NOTE | 2024-07-29 14:36 | A.OFFVIS_ITS ---
Intake Visit Reasons: ER follow up Intake Note: Patient is present for ER F/U Urology Medication:NONE Antibiotic Allergy:NONE Blood Thinner:NONE Concrete Crusher Loader Operator Required: No Allergies No Known Allergies Allergy (Verified 07/29/24 14:36) HPI Comments Details: Mariya is a pleasant female. She is seen for the following urologic conditions. - nephrolithiasis Reason presentation to emergency room with left-sided flank pain Still having intermittent pain Discussion with patient and mother Recommend cystoscopy, left retrograde stent placement This would be temporary till ESWL Nephrolithiasis Recent emergency room visit Imaging - 07/21 Left kidney revealed mild hydroureteronephrosis due to obstruction of left renal pelvis by 0.7 x 0.9 cm calculus with attenuation of 1380 HU there is very mild perinephric stranding [facility] Medical History Hypertension Obese Review of Systems Const Denies chills and Denies fever(s) Card Reports no additional complaints and Denies syncope Resp Denies cough GI Denies abdominal pain and Denies heartburn Reports as per HPI and Denies change in libido Neuro Denies syncope Psych Denies change in libido Endo Denies change in libido Physical Exam Const General: cooperative, healthy appearing, comfortable and no acute distress Orientation/consciousness: patient oriented x3 HEENT Face and sinus: Yes normal facial exam Mouth: moist mucous membranes Neck Neck: Yes normal visual inspection, Yes full ROM and Yes trachea midline Chest Chest palpation & inspection: normal inspection of the chest Resp Effort & Inspection: normal respiratory effort, able to speak in complete sentences and no respiratory distress GI Inspection: Yes normal to inspection Back/Spine/Pelvis Cervical Spine: normal cervical lordosis Thoracic/Lumbar Spine: thoracic and lumbar spine normal to inspection Skin General skin exam: no rashes or lesions noted Neuro General: patient oriented x3, gait normal, tone normal and moves all extremities Extrem General: Yes normal to inspection and Yes capillary refill normal Assessment & Plan Assessment & Plan (1) Nephrolithiasis: Code(s): N20.0 - Calculus of kidney Category: Medical Plan Risks, benefits and alternatives to therapy were discussed. These include but are not limited to infection, bleeding, damage to local organs and tissues, need for further interventions. Anesthetic risks regarding cardiac arrhythmia, blood clots, and potential mortality were discussed. The patient understands the typical recovery time and the outpatient nature of the procedure. After consideration of these risks the patient gives full informed consent and they wish to move ahead with the procedure. Cystoscopy, left retrograde, left stent placement Patient Instructions: Imaging studies, laboratory and physical exam results were discussed and reviewed in detail. No major barriers to patient understanding were identified. An opportunity to ask questions regarding the treatment plan was provided. All questions were answered. The patient expressed understanding and agreement with the above treatment plan. The patient is aware they should contact our office by phone for worsening of their current condition or the appearance of new urologic symptoms. Compliance is encouraged with any medications and followup testing that is ordered. It is a privilege to participate in the urologic care of your patient. If you have any questions or concerns regarding treatment for the above conditions, or other urologic issues, please do not hesitate to contact me. The office telephone contact is [phone]. This note is constructed using voice recognition software. While every effort has been made to ensure accuracy insulation cutter and former errors may have been included. Yours sincerely, Dr Beau Zamora MD, [facility] - Urology Providers of Expert, Compassionate Care for the Genitourinary System Coding Level of Care Code New Pt Level 4 (21947) Diagnoses Nephrolithiasis N20.0
== END 2024-07-29 15:08 | disposition home or self-care (01) ==
PROVIDERS: Visit Provider Urology
DX: N20.0 Calculus of kidney (principal)
CPT/HCPCS: 99204

== ENCOUNTER → 2024-07-29 14:16 | Outpatient (BNVA) | payer OTHER, SELFPAY | PROVIDERS: Visit Provider Urology | DX: N20.0 Calculus of kidney (principal) | CPT/HCPCS: 99202 ==

== ENCOUNTER → 2024-08-03 12:34 | Day surgery (SDC) | payer OTHER, SELFPAY ==
--- NOTE | 2024-07-31 13:01 | HO.ANESPROP2 ---
HPI - Anesthesia Eval Consult details Narrative: 24yo F for Left Cystoscopy Retrograde with stent PMFSH Active Problems Active Problems: All Active Problems Nephrolithiasis (Acute) Past Medical History Medical History Hypertension Obese Meds Allergies Allergy/AdvReac Type Severity Reaction Status Date / Time No Known Allergies Allergy Verified 07/29/24 14:36 Exam Pertinent Lab Results Pertinent Lab Results: Laboratory Tests 07/26/24 08:12 WBC 13.1 H Hgb 13.6 Hct 42.4 Plt Count 358 Sodium 141 Potassium 4.0 Chloride 110 H Carbon Dioxide 20 L BUN 16 Creatinine 1.03 Narrative Narrative: EKG 03/2024 Vent. Rate : 086 BPM Atrial Rate : 086 BPM P-R Int : 128 ms QRS Dur : 094 ms QT Int : 388 ms P-R-T Axes : 028 003 054 degrees QTc Int : 464 ms Normal sinus rhythm Minimal voltage criteria for LVH, may be normal variant ( R in aVL ) Borderline ECG When compared with ECG of 05-MAY-2021 20:09, No significant change was found Assessment and Plan Assessment Anesthesia Assessment: Chart Reviewed
[2024-08-03 13:35] VITALS: BMI 52.9
[2024-08-03 13:45] VITALS: BP 168/108; PULSE 94; RESP 18; TEMP 36.7; O2SAT 97
[2024-08-03] MEDS: Lactated Ringers 1,000 ML 100 ML IVCONT (13:47)
[2024-08-03 14:10] VITALS: BP 168/114
--- NOTE | 2024-08-03 14:10 | PC.NURSE ---
dr. mock aware of perop bp. ok to proceed. no interventions at this time.
[2024-08-03 14:50] LABS: UPreg QC Valid YES; Urine Pregnancy NEGATIVE (NEGATIVE)
--- NOTE | 2024-08-03 15:01 | MHC.SHP ---
Pre-Procedural Eval Section A - 24 Hr Update-Section A only Date of Service: 08/03/24 The patient is an INPATIENT: No Changes since office visit: No Cold of Flu in the past 2 weeks, No New Medical Problems, No Changes in Medication and No Patient answered all questions The patient has been examined within 24 hours of the surgical procedure. The History & Physical has been completed within 30 days and I have reviewed it.: Yes Section B - Complete if H&P > 30 days Chief Complaint: Calculus of kidney Details of Present Illness: Cystoscopy, left stent placement Allergies: Allergies Allergy/AdvReac Type Severity Reaction Status Date / Time No Known Allergies Allergy Verified 08/03/24 13:50 Plan I have reviewed the history and physical and performed a pertinent physical examination on my patient. No changes have occurred unless specified. Time Spent With Patient Time: Total time managing care of this patient today ____ minutes.
[2024-08-03] MEDS: levoFLOXacin 500 MG TABLET PO (15:05)
--- NOTE | 2024-08-03 15:19 | PC.NURSE ---
1347 - 22 gauge IV placed to left hand by author, but unable to advance to completion as it stops running when tried. Red mcneill rn and camryn zaidi rn each attempted IV. Dr. Zaragoza and Dr. Matthews each attempted each foot and one attempt to right forearm with ultrasound by dr. stover. Updating dr. lacey now and making decision.
--- NOTE | 2024-08-03 16:23 | PC.NURSE ---
IV access was unsuccesful - see previous nurse note. Patient to be cancelled today and to return tomorrow per dr. lacey for midline placement and surgery after. 22 gauge IV that wouldn't advance was removed and intact. Mother called by author and updated and in agreeance. Patient leaving with all of her belongings.
--- NOTE | 2024-08-03 16:27 | PC.NURSE ---
patient wristband was scanned for antibiotic, but then anesthesia was attempting IV's so antibiotic was not given and then doctors were deciding if patient would be cancelled so antibiotic returned to [facility]
--- NOTE | 2024-08-03 16:34 | PM.UROPN ---
Subjective Subjective Date of Service: 08/03/24 Interval history: Patient presented for stent placement today Unable to have IV access Plan from midline to be placed tomorrow and for procedure tomorrow Physical Exam Vital Signs: Vital Signs: Last Vital Signs Temp 98.1 F 08/03/24 13:45 Pulse 94 08/03/24 13:45 Resp 18 08/03/24 13:45 BP 168/114 H 08/03/24 14:10 Pulse Ox 97 08/03/24 13:45 O2 Del Method Room Air 08/03/24 13:45 BMI result Body Mass Index 52.9 Const: General: cooperative, healthy appearing, comfortable and no acute distress Orientation/consciousness: patient oriented x3 HEENT: Face and sinus: Yes normal facial exam Mouth: moist mucous membranes Neck: Neck: Yes normal visual inspection, Yes full ROM and Yes trachea midline Chest: Chest palpation & inspection: normal inspection of the chest Resp: Effort & Inspection: normal respiratory effort, able to speak in complete sentences and no respiratory distress GI: Inspection: Yes normal to inspection Back/Spine/Pelvis: Cervical Spine: normal cervical lordosis Thoracic/Lumbar Spine: thoracic and lumbar spine normal to inspection Skin: General skin exam: no rashes or lesions noted Neuro: General: patient oriented x3, tone normal and moves all extremities Extrem: General: Yes normal to inspection and Yes capillary refill normal Urology Results Labs Labs: Laboratory Results - last 24 hr 08/03/24 08:09 Urine Test NEGATIVE Progress Note: A&P Assessment and plan (1) Nephrolithiasis: Status: Acute Assessment and Plan: Plan for midline access and stent tomorrow Time Spent With Patient Time: Total time managing care of this patient today ____ minutes.
--- NOTE | 2024-08-04 15:31 | P.PICC_ITS ---
PICC Line Insertion NPICC Diagnosis: [] Indication: [] Pertinent Labs: [] Technique: Following informed consent including risks, benefits and alternatives and using sterile technique including cap and mask, sterile gown, glove and drape, the [] arm was prepped and draped in the usual sterile fashion of full barrier technique with G. Following completion of Whitehouse Protocol the skin and soft tissues were anesthetized with 1% Lidocaine plain. Using ultrasound guidance, [] vein access was obtained. Over an 0.018 wire through peel-away sheath, a [] PICC line was positioned. Catheter length is [] internal length, [] external length, for a total trimmed length of []. The procedure was performed in []. Tip verification was performed by Keanu Martinez with Mariza 3CG. Tip located in SVC. Ultrasound was used to document vein patency and for needle entry. A formal ultrasound picture and cardiac rhythm strip was recorded. Vascular Calciner Operator Helper has released the line for use and it is currently dressed with a StatLock, Tegaderm, and CHG disc. Verification has been performed for blood return and line patency. Arm Circumference: [] Equipment: [] Catheter Type: [] Lot #: []
--- NOTE | 2024-08-04 15:35 | HO.MIDLINE_ITS ---
Midline Insertion MIDLINE INSERTION Diagnosis: Urological surgery Indication: difficult iv access Pertinent Labs: reviewed Technique: Using sterile technique including cap and mask, glove and drape, the right arm was prepped and draped in the usual sterile fashion of full barrier technique with CHG. Using ultrasound guidance, right cephalic vein access was obtained . 4FR single lumen non PASV trimmable Power midline trimmed to 10cm was positioned. The procedure was performed in [facility]. Ultrasound was used to document vein patency and for needle entry. A formal ultrasound picture was recorded. Vascular Crop Or Grain Farmer has released the line for use and it is currently dressed with a StatLock, Tegaderm, and CHG disc. Verification has been perfo rmed for blood return and line patency. Arm Circumference: 36cm Equipment: BARD Power Midline catheter Catheter Type: 4Fr single lumen non PASV Lot #: [id number]
== END ==
LOC: HO.SSS 12:34
PROVIDERS: Nurse Practitioner; Visit Provider Urology
DX: N20.0 Calculus of kidney (principal); Z53.29 Procedure and treatment not carried out because of patient's decision for other reasons; I10 Essential (primary) hypertension
CPT/HCPCS: 36410; 81025; C1751; J2003; J2250; J2704; J3010; Q9967

== ENCOUNTER → 2024-08-03 12:34 | Outpatient (BNV) | payer OTHER, SELFPAY | PROVIDERS: Visit Provider Urology | DX: N20.0 Calculus of kidney (principal) | CPT/HCPCS: 99231 ==

== ENCOUNTER 2024-08-04 11:53 | Day surgery (SDC) | payer OTHER, SELFPAY ==
[2024-08-04] VITALS (17 sets, daily range): BP systolic 151–223; BP diastolic 100–156; PULSE 79–108; RESP 18–30; TEMP 36.4–36.8; O2SAT 84–100; BMI 52.9
--- NOTE | 2024-08-04 16:40 | MHC.SHP ---
Pre-Procedural Eval Section A - 24 Hr Update-Section A only Date of Service: 08/04/24 The patient is an INPATIENT: Yes The patient has been examined within 24 hours of the surgical procedure. The History & Physical has been completed within 30 days and I have reviewed it.: Yes Section B - Complete if H&P > 30 days Chief Complaint: Calculus of kidney Allergies: Allergies Allergy/AdvReac Type Severity Reaction Status Date / Time No Known Allergies Allergy Verified 08/03/24 13:50 Plan Diagnosis/Plan: Unchanged I have reviewed the history and physical and performed a pertinent physical examination on my patient. No changes have occurred unless specified. Cystoscopy. Left retrograde, left ureteral stent insertion. Time Spent With Patient Time: Total time managing care of this patient today ____ minutes.
--- NOTE | 2024-08-04 16:49 | P.CONAN_ITS ---
HPI - Anesthesia Eval Consult details Narrative: For cysto, stent. PMFSH Active Problems Active Problems: All Active Problems Nephrolithiasis (Acute) Past Medical History Medical History Hypertension Obese Patient : No Family History Family history of problems with anesthesia: No Surgical History Surgical History (Updated 08/03/24 @ 13:51 by Barbi Wasserman RN) Hx of tonsillectomy History of Problems with Anesthesia: No Social History Social History Are you a primary home health care provider to a significant other at home: No Do you presently have visiting nurse or other home services: No Patient Tobacco Use Status: Never used Tobacco Use of substances other than those prescribed or required for medical reasons: No Are you DNR?: No Advance Directives: No Advance Directives Information Provided: Yes Meds Allergies Allergy/AdvReac Type Severity Reaction Status Date / Time No Known Allergies Allergy Verified 08/03/24 13:50 Active Medications: Current Medications Cefazolin Sodium 3 gm/ Sodium (Chloride) 100 mls @ 200 mls/hr IV PREOP ONE Stop: 08/04/24 17:08 Exam Height,Weight and Vital Signs: Height 5 ft 1 in Weight 127 kg Last Vital Signs Temp 98.2 F 08/04/24 16:14 Pulse 98 08/04/24 16:14 Resp 20 08/04/24 16:14 BP 167/100 H 08/04/24 16:14 Pulse Ox 98 08/04/24 16:14 O2 Del Method Room Air 08/04/24 16:14 Airway Mallampati Class: III TM Dist: <=3cm Neck ROM: Full Loose/Missing/Broken Teeth: No Heart: ok Lungs: ok Assessment and Plan Assessment Anesthesia Assessment: Anesthesia Plan Discussed and Chart Reviewed Final Anesthetic Review Family History of Problems with Anesthesia: No History of Problems with Anesthesia: No NPO: Yes ASA Class: III and Emergency Final Preanesthetic Review: No Changes in Pt Med Stat, Meds/Allgs Chart Re viewed, Consent Obtained/Reviewed and Anes Risks/Benef Reviewed Patient Risk: Intermediate Procedure Risk: Low Anesthetic Plan Anesthetic Plan: GA and Agree w/ Assess. and Plan Disposition: Standard PACU
--- NOTE | 2024-08-04 18:12 | P.OP_ITS ---
Operative Note Operative Note Date of Service: 08/04/24 Narrative: PreOperative Diagnosis:?? left ureteral stone, left hydronephrosis Post Operative Diagnosis:?? left ureteral stone, left hydronephrosis Procedure: - Cystoscopy, left retrograde, left ureteroscopy laser lithotripsy stent insertion, 7 [place] by 24 cm Surgeon:?Dr Fanta Monroe Anesthesia:? General Indications for procedure: Obstructive uropathy, left Procedure: After informed consent was verified the patient was brought to the operating placed on the OR table in supine position.? General Anesthesia was administered per protocol.? The patient was placed in lithotomy position, prepped and draped in the usual sterile fashion.? Safety pause time-out and side of surgery confirmed.? Antibiotics confirmed. Ancef 3 gm IV. 2% lidocaine jelly 10 mL was passed transurethrally. A 22 Citizen [place] cystoscope was inserted transurethrally, the bladder was visualized.? Both ureteric orifices were in normal position. An open-ended ureteral catheter was passed into the left ureteral orifice and a retrograde examination was performed. There was a filling defect in the mid to proximal left ureter and dilatation of the proximal ureter and renal pelvis and calyces. A guidewire was passed through the ureteral catheter into the kidney. The balloon dilator size 12 fr x 4 cm was passed over the guide-wire the balloon was inflated to 10 mmHg and the intramural ureter was dilated for 45 seconds. The balloon was deflated and removed. After removing the balloon dilator a 2nd guidewire was then passed into the kidney to use as a safety. The cystoscope was removed, leaving both guidewires in place. One guidewire was used as the safety and was attached to the draping. The semi rigid ureteroscope was passed over one of the guidewires to the level of the stone in the ureter. One guidewire was then removed. Laser lithotripsy of the stone was done using the 365 fiber with a alternating pulsating and dusting setting. There was good fragmentation of the stone. The 0 degree basket was passed through the ureteroscope, stone fragment(s) removed and sent for analysis. The ureteroscope was removed. The cystoscope was passed over the safety guidewire. A? 7 [place] by 24 cm stent was placed into the ureter and r enal pelvis under a combination of fluoroscopy and direct visualization. The bladder was emptied.? The rigid cystoscope was removed. ? The patient tolerated the procedure well and was brought to the recovery room in stable condition. Complications: None Drains: Ureteral stent as dictated above
[2024-08-04] MEDS: fentaNYL citrate/PF 100 MCG/2 ML VIAL 50 MCG IVPUSH (19:11)
[2024-08-04] MEDS: ondansetron HCL 4 MG/2 ML VIAL IVPUSH (19:18)
[2024-08-11 01:34] LABS: Stone Source LEFT URETERAL STONE
== END 2024-08-04 20:45 | disposition home or self-care (01) ==
PROVIDERS: Visit Provider Urology
DX: N20.1 Calculus of ureter (principal); N13.30 Unspecified hydronephrosis; I10 Essential (primary) hypertension; E66.9 Obesity, unspecified
CPT/HCPCS: 52356; 82365; C1726; C1769; C2617; J0690; J2003; J2405; J2704; J3010

== ENCOUNTER → 2024-08-04 11:53 | Outpatient (BNV) | payer OTHER, SELFPAY | PROVIDERS: Visit Provider Urology | DX: N20.1 Calculus of ureter (principal); N13.30 Unspecified hydronephrosis | CPT/HCPCS: 52356; 74420 ==

== ENCOUNTER 2024-08-04 20:50 | Emergency (ER) | payer OTHER, SELFPAY ==
--- NOTE | 2024-08-04 | ECG_ITS ---
Test Reason : HTN Blood Pressure : / mmHG Vent. Rate : 093 BPM Atrial Rate : 093 BPM P-R Int : 118 ms QRS Dur : 086 ms QT Int : 354 ms P-R-T Axes : 018 003 066 degrees QTc Int : 440 ms Normal sinus rhythm Left ventricular hypertrophy with repolarization abnormality ( R in aVL , Romhilt-Hayes ) Abnormal ECG When compared with ECG of 27-DEC-2023 14:08, No significant change was found Referred By: Generic ED Physician Electronically Signed By:KAT ALLAN MD
[2024-08-04 20:51] VITALS: BP 180/125; PULSE 96; RESP 16; TEMP 37.1; O2SAT 99; BMI 52.9
--- NOTE | 2024-08-04 21:04 | ED_ITS ---
HPI - General Adult General Chief complaint: General Medical Stated complaint: high bp Time Seen by Provider: 08/04/24 21:04 History of Present Illness ED Provider: Trinidad BROWN narrative: The patient is a 24-year-old female who came to the hospital for an outpatient urological procedure today. She had a known left ureteral calculus and hydronephrosis. She underwent cystoscopy and left ureteroscopy with laser lithotripsy, and left stent insertion. The patient had presented to the hospital yesterday on August 03 for this procedure but an IV could not be placed. Procedure was therefore postponed until a midline IV could be placed in the left antecubital fossa. This was done prior to the procedure today and the procedure went forward. Postoperatively the patient was hypertensive and had nausea. Apparently the PACU was closing and she could not receive further postoperative care in the PACU and so she was sent to the emergency room. Here in the emergency room the patient says that she has nausea but no significant pain or other symptoms. Patient's mother has a arrived and confirms that the patient seems to be at her baseline. Apparently the patient has had problems with hypertension since age 18. The mother says this was attributed to her obesity. She was only recently prescribed any antihypertensive medications. She was prescribed this by the ER physician on July 26 at the time of the diagnosis of her kidney stone that required the procedure today. She has been taking 10 mg of lisinopril daily since that ER visit. The mother says her blood pressures have tended to be high despite the introduction of the lisinopril. They have not yet managed to get a primary care doctor appointment. Related Data Previous Rx's ?Medication ?Instructions ?Recorded lisinopril 10 mg tablet 10 mg PO DAILY 90 days #90 tabs 07/26/24 morphine 15 mg immediate release 15 mg PO Q6H PRN pain #10 tabs 07/26/24 tablet morphine 15 mg immediate release 15 mg PO Q8H PRN pain #10 tabs 07/26/24 tablet ondansetron 4 mg disintegrating 4 mg PO Q6-8H PRN nausea and 07/26/24 tablet vomiting #14 tabs Allergies Allergy/AdvReac Type Severity Reaction Status Date / Time No Known Allergies Allergy Verified 08/04/24 20:54 Review of Systems Review of Systems: Yes all other systems are reviewed and are negative [facility] Past Medical History Medical History (Updated 08/04/24 @ 23:16 by Jacek Abdi MD) Hypertension Obese Surgical History (Updated 08/03/24 @ 13:51 by Barbi Wasserman RN) Hx of tonsillectomy Social History Social History Are you a primary career information specialist to a significant other at home: No Do you presently have visiting nurse or other home services: No Patient Tobacco Use Status: Never used Tobacco Advance Directives: No Advance Directives Information Provided: Yes Physical Exam ED Vital Signs: Vital Signs - 24 hr 08/04/24 20:51 08/04/24 21:56 08/04/24 22:22 Temperature 98.8 F Pulse Rate 96 90 Respiratory Rate 16 16 Blood Pressure 180/125 H 181/113 H 136/90 H Pulse Oximetry 99 99 Oxygen Delivery Method Room Air Room Air BMI result Body Mass Index 52.9 Const Other: The patient is an obese 24-year-old who was awake and alert. She does not seem uncomfortable or in distress. BMI 52.9. HENMT Other: Face is symmetrical. Mucous membranes moist. Eyes Other: Pupils are round equal, conjunctivae are clear, extraocular movements intact Neck Other: Neck is supple Resp Effort & Inspection: normal respiratory effort Auscultation: clear to auscultation bilaterally Cardio Rate: regular rate Rhythm: regular rhythm Heart sounds: S1 normal heart sound present and S2 normal heart sound present GI Other: The patient has a large abdomen. No tenderness. Back/Spine/Pelvis Other: No CVA percussion tenderness Skin Other: Skin is dry and unremarkable Neuro Other: The patient was awake but seemed tired. Her mental status was otherwise normal. Pupils are round equal, eye movements are intact, face is symmetrical, speech is clear, she moves her extremities normally, gait is steady. She seems neuro logically intact. Extrem Other: No peripheral edema Medications Administered Generic Name Dose Route Start Last Admin Trade Name Freq PRN Reason Stop Dose Admin Sodium Chloride 1,000 mls @ 999 mls/hr 08/04/24 22:30 08/04/24 22:22 Ns IV 08/04/24 23:30 999 mls/hr .Q1H1M BASIM Administration Discontinued Medications Generic Name Dose Route Start Last Admin Trade Name Freq PRN Reason Stop Dose Admin Clonidine HCl 0.1 mg 08/04/24 21:34 08/04/24 21:56 Clonidine Hcl 0.1 Mg Tablet PO 08/04/24 21:35 0.1 mg ONCE ONE Administration Protocol Droperidol 0.625 mg 08/04/24 21:34 08/04/24 21:56 Droperidol 5 Mg/2 Ml Vial IVPUSH 08/04/24 21:35 0.625 mg ONCE ONE Administration Medical Decision Making Medical Decision Making [facility] Narrative: The patient is a 24-year-old with a history of chronic untreated hypertension who had an outpatient urological procedure for a left-sided ureteral stone. Pos toperatively she was hypertensive and had nausea. She was sent to the emergency room because the PACU was closing. I believe the patient has likely had fairly high blood pressures for a long time. She had some nausea. She was given droperidol for nausea. She was given IV fluids. She was given 0.1 mg of clonidine with improvement in her blood pressure. Her mother feels that she is at her baseline. I Think the patient may be discharged. She has been taking 10 mg of lisinopril daily. I think this can probably be doubled to 20 mg daily. Mother has a about 80 tablets at home she estimates. The mother has been in contact with a local primary care doctor's office here at [address] and she is encouraged to contact them in the morning to see if she can expedite evaluation at a PCP office. Lab Data Labs: Lab Results 08/04/24 Range/Units 22:23 Urine Color RED Urine Appearance Hazy Urine pH 5.5 (5.0-9.0) Ur Specific [place] 1.015 (1.005-1.025) Urine Protein See Note (Neg-Trace) mg/dL Urine Glucose (UA) Negative (Negative) mg/dL Urine Ketones Negative (Negative) mg/dL Urine Blood Large (3+) H (Negative) Urine Nitrite See Note (Negative) Ur Leukocyte Esterase See Note (Negative) Urine RBC >20 H (0-2) /HPF Urine WBC 21-50 H (0-5) /HPF Ur Squamous Epith Cells 3-5 (0-2) /HPF Urine Bacteria None Seen (None Seen) Hyaline Casts 0-2 (0-2) /LPF Urine Test NEGATIVE (NEGATIVE) Independent Interpretation I performed an independent interpretation of an: EKG Interpretation: EKG at 2114 shows normal sinus rhythm at 93 beats per minute. EKG likely shows findings consistent with LVH but overall it is fairly similar to an EKG from December of 2023. Discharge Plan Discharge Clinical Impression: Hypertension, Postoperative nausea Patient Disposition: Home, Self-Care Additional Instructions: I think it would be safe to increase the lisinopril you has been taking to 2 tablets daily. Therefore you will be taking 20 mg daily. Please contact the doctor's office you has been referred to in the morning to see if you can get in sometime soon to be seen. Please follow up with the urology office as discussed with the urologist. Return to the emergency room if significantly worse in any way. Prescriptions: No Action morphine 15 mg tablet 15 mg PO Q6H PRN (Reason: pain) Qty: 10 0RF Rx Instructions: Patient may request partial fill; Partial Fill upon patient request. ondansetron 4 mg tablet,disintegrating 4 mg PO Q6-8H PRN (Reason: nausea and vomiting) Qty: 14 0RF morphine 15 mg tablet 15 mg PO Q8H PRN (Reason: pain) Qty: 10 0RF Rx Instructions: Partial Fill upon patient request. lisinopril 10 mg tablet 10 mg PO DAILY 90 Days Qty: 90 0RF Referrals: [facility] [place] [place] [facility] [Provider Group] Print Language: Syriac
[2024-08-04 21:56] VITALS: BP 181/113
[2024-08-04] MEDS: cloNIDine HCL 0.1 MG TABLET PO (21:56)
[2024-08-04] MEDS: droPERidol 5 MG/2 ML VIAL 0.625 MG IVPUSH (21:56)
[2024-08-04 22:22] VITALS: BP 136/90; PULSE 90; RESP 16; O2SAT 99
[2024-08-04] MEDS: 0.9 % Sodium Chloride 1,000 ML 999 ML IV (22:22)
[2024-08-04 22:32] LABS: Appearance Urine Hazy; Color Urine RED; Glucose Urine UA Negative (Negative); PH 5.5 (5.0-9.0); Specific Gravity - Urine 1.015 (1.005-1.025); UMIC TRIGGER UACC YES; Urine Blood Large (3+) (Negative); Urine Ketones Negative (Negative)
[2024-08-04 22:38] LABS: UPreg QC Valid YES; Urine Pregnancy NEGATIVE (NEGATIVE)
[2024-08-04 22:56] LABS: Bacteria Urine None Seen (None Seen); Hyaline Casts Urine 0-2 /LPF (0-2); RBC Urine >20 /HPF (0-2); UACC Culture Trigger YES; WBC Urine 21-50 /HPF (0-5)
[2024-08-04 23:45] VITALS: BP 136/90; PULSE 90; RESP 16; TEMP 37.1; O2SAT 99
== END 2024-08-04 23:45 | disposition home or self-care (01) ==
PROVIDERS: Emergency Provider Emergency Medicine
DX: N13.2 Hydronephrosis with renal and ureteral calculous obstruction (principal); I10 Essential (primary) hypertension; R11.0 Nausea; R94.31 Abnormal electrocardiogram [ECG] [EKG]; Z79.899 Other long term (current) drug therapy
CPT/HCPCS: 81001; 81025; 87086; 93005; 96361; 96374; 99284; J1790

== ENCOUNTER → 2024-08-04 21:15 | Outpatient (BNV) | payer OTHER, SELFPAY | PROVIDERS: Emergency Provider Emergency Medicine; Visit Provider Internal Medicine Cardiovascular Disease | DX: I10 Essential (primary) hypertension (principal) | CPT/HCPCS: 93010 ==

== ENCOUNTER 2024-08-27 09:06 | Outpatient (AMB) | payer OTHER, SELFPAY ==
--- NOTE | 2024-08-27 09:16 | MHC.OFFVIS ---
Intake Visit Reasons: stent removal Intake Note: Patient is present for Cystoscopy/Stent removal Urology Med: None Antibiotic Allergy: None Blood Thinner: None Uro G-HD Cystoscope LOT:[id number] EXP:11/28/2026 Customer Order Clerk Required: No Accompanied by: Self / Same As Patient Allergies No Known Allergies Allergy (Verified 08/27/24 09:20) HPI Comments Details: Mariya is a pleasant female. She is seen for the following urologic conditions. - nephrolithiasis Here for stent removal Discussed Stone composition Recommend increased fluid with lemon water Avoid soda Watch salt diet Nephrolithiasis Recent emergency room visit Imaging - 07/21 Left kidney revealed mild hydroureteronephrosis due to obstruction of left renal pelvis by 0.7 x 0.9 cm calculus with attenuation of 1380 HU there is very mild perinephric stranding Stone composition - Calcium Oxalate Monohydrate (Whewellite) 95%Carbonate Apatite (Dahllite) 5% Plan three-month follow-up ultrasound nurse-practitioner [facility] Medical History Hypertension Obese Surgical History Hx of tonsillectomy Social History Are you a primary special needs child caregiver to a significant other at home: No Do you presently have visiting nurse or other home services: No Patient Tobacco Use Status: Never used Tobacco Review of Systems Const Denies chills and Denies fever(s) Card Reports no additional complaints and Denies syncope Resp Denies cough GI Denies abdominal pain and Denies heartburn Reports as per HPI and Denies change in libido Neuro Denies syncope Psych Denies change in libido Endo Denies change in libido Physical Exam Const General: cooperative, healthy appearing, comfortable and no acute distress Orientation/consciousness: patient oriented x3 HEENT Face and sinus: Yes normal facial exam Mouth: moist mucous membranes Neck Neck: Yes normal visual inspection, Yes full ROM and Yes trachea midline Chest Chest palpation & inspection: normal inspection of the chest Resp Effort & Inspection: normal respiratory effort, able to speak in complete sentences and no respiratory distress GI Inspection: Yes normal to inspection Back/Spine/Pelvis Cervical Spine: normal cervical lordosis Thoracic/Lumbar Spine: thoracic and lumbar spine normal to inspection Skin General skin exam: no rashes or lesions noted Neuro General: patient oriented x3, gait normal, tone normal and moves all extremities Extrem General: Yes normal to inspection and Yes capillary refill normal Office Procedures Cystoscopy Consent Discussed risk and benefit or proposed procedure with the patient. Information consent for procedure given to the patient. Discussed technical aspects, risks, benefits and alternatives in full. Addressed all of the patient's questions and concerns regarding the procedure. The patient demonstrated knowledge and understanding. They wish to proceed with this procedure. Preparation The patient was prepped in the usual manner. A computer installation engineer was present and in the room. Genitalia was prepped with betadine solution in a sterile manner. Lidocaine Jelly 2% was placed into the urethra and 16Fr flexible Olympus cystoscope was inserted into the meatus after adequate lubrication. [id number] with stent removal DISPOSABLE SCOPE URO-G FLEXIBLE SCOPE Procedure code (CPT) selection complete Office Meds lidocaine HCl 2 % mucosal jelly in applicator Performing Provider: Beau Zamora MD Performing Location: [facility] – [place] [facility] Administered by: Audie James LPN on 08/27/24 09:33 Dose Route Admin Location Dispensed Lot Number Expiration Date ND Stick Inserter 10 mL intra-urethral 10 mL nitrofurantoin monohydrate/macrocrystals 100 mg capsule Performing Provider: Beau Zamora MD Performing Location: [facility] – [place] [facility] Administered by: Audie James LPN on 08/27/24 09:33 Dose Route Admin Location Dispensed Lot Number Expiration Date NDC Stick Inserter 100 mg PO 1 cap naproxen 500 mg tablet Performing Provider: Beau Zamora MD Performing Location: [facility] – [place] [facility] Administered by: Audie James LPN on 08/27/24 09:33 Dose Route Admin Location Dispensed Lot Number Expiration Date ND Stick Inserter 500 mg PO 1 tab Assessment & Plan Assessment & Plan (1) Nephrolithiasis: Code(s): N20.0 - Calculus of kidney Category: Medical Plan Three-month follow-up imaging Orders: Orders AMB Urinalysis Automated Today Z13.9 - Encounter for screening, unspecified AMB Cystoscopy Today N20.0 - Calculus of kidney US renal BI 3 Months N20.0 - Calculus of kidney Patient Instructions: Imaging studies, laboratory and physical exam results were discussed and reviewed in detail. No major barriers to patient understanding were identified. An opportunity to ask questions regarding the treatment plan was provided. All questions were answered. The patient expressed understanding and agreement with the above treatment plan. The patient is aware they should contact our office by phone for worsening of their current condition or the appearance of new urologic symptoms. Compliance is encouraged with any medications and followup testing that is ordered. It is a privilege to participate in the urologic care of your patient. If you have any questions or concerns regarding treatment for the above conditions, or other urologic issues, please do not hesitate to contact me. The office telephone contact is [phone]. This note is constructed using voice recognition software. While every effort has been made to ensure accuracy health underwriter errors may have been included. Yours sincerely, Dr Beau Zamora MD, [facility] - Urology Providers of Expert, Compassionate Care for the Genitourinary System Coding Level of Care Code Est Pt Level 3 (00207) Diagnoses Nephrolithiasis N20.0 CPT Codes Cystoscopy - CPT: 34279-[id number] with stent removal ([id number])
== END 2024-08-27 10:17 | disposition home or self-care (01) ==
LOC: HO.HUSH 09:07
PROVIDERS: Visit Provider Urology
DX: N20.0 Calculus of kidney (principal)
CPT/HCPCS: 52310; 99213

== ENCOUNTER → 2024-08-27 09:06 | Outpatient (BNVA) | payer OTHER, SELFPAY | PROVIDERS: Visit Provider Urology | DX: N20.0 Calculus of kidney (principal); Z46.6 Encounter for fitting and adjustment of urinary device | CPT/HCPCS: 52310; 99212 ==

== ENCOUNTER 2024-11-20 16:32 | Outpatient (REF) | payer OTHER, SELFPAY | END 2024-11-20 16:33 | disposition home or self-care (01) | LOC: HO.US 16:32 | PROVIDERS: Visit Provider Urology | DX: N20.0 Calculus of kidney (principal) | CPT/HCPCS: 76775 ==

== ENCOUNTER → 2024-11-20 16:34 | Outpatient (BNV) | payer OTHER, SELFPAY | PROVIDERS: Visit Provider Radiology Diagnostic Radiology | DX: N20.0 Calculus of kidney (principal) | CPT/HCPCS: 76775 ==

== ENCOUNTER 2024-11-26 13:40 | Outpatient (AMB) | payer OTHER, SELFPAY ==
--- NOTE | 2024-11-26 13:53 | A.OFFVIS_ITS ---
Intake Visit Reasons: 3m/US(pending) Intake Note: Patient presents today for follow up on: nephrolithias and ultrasound results * imaging completed: 11/20/24 Urology Med: None Antibiotic Allergy: None Blood Thinner: None Cement Based Materials Pump Tender Required: No Accompanied by: Self / Same As Patient Allergies No Known Allergies Allergy (Verified 11/26/24 14:20) Medication List - Last Reconciled 11/26/24 by YASIR Stevenson No Known Home Meds HPI Comments Details: Mariya is a very pleasant 24-year-old female patient who was accompanied by her sister at today's office visit. She has a past medical history of obesity and hypertension. She presents to the office today for follow-up of her nephrolithiasis. Of note, patient underwent surgical procedure with Dr. Zamora 07/21 for obstructing 9 mm calculus in the left renal pelvis. She has since had a follow-up in office with ureteral stent removal. Recent renal imaging results reviewed with the patient and her sister today. 11/21 bilateral kidneys with no hydronephrosis or renal masses. Left kidney with nonobstructing 4 mm mid to lower pole calculus. In discussion with the patient today she denies having had any bothersome urinary issues or concerns since her last office visit here. She denies any previous history of nephrolithiasis prior to this surgical intervention. She denies urinary urgency, urinary frequency, incontinence, nocturia, hematuria, dysuria, foul smelling urine, changes to urinary stream, flank pain, fever, and or chills. She is happy with her current voiding parameters. She discusses attempting to avoid soda. She otherwise offers no other issues or concerns at this time. Nephrolithiasis Recent emergency room visit Imaging - 07/21 Left kidney revealed mild hydroureteronephrosis due to obstruction of left renal pelvis by 0.7 x 0.9 cm calculus with attenuation of 1380 HU there is very mild perinephric stranding Stone composition - Calcium Oxalate Monohydrate (Whewellite) 95%Carbonate Apatite ([place]) 5% PFSH Medical History Hypertension Obese Surgical History Hx of tonsillectomy Social History Are you a primary prompt care rn to a significant other at home: No Do you presently have visiting nurse or other home services: No Patient Tobacco Use Status: Never used Tobacco Review of Systems Const All systems reviewed & are unremarkable except as noted in HPI and below Physical Exam Const General: cooperative, healthy appearing, comfortable, no acute distress, well developed, alert and awake Nutritional Appearance: overweight Orientation/consciousness: patient oriented x3 Limitations: no limitations HEENT Head: Yes normal to inspection, Yes normocephalic and Yes atraumatic Ears: hearing grossly normal bilaterally Eyes General: appearance normal, both eyes and all related structures Neck Neck: Yes normal visual inspection and Yes trachea midline Chest Chest palpation & inspection: normal inspection of the chest Resp Effort & Inspection: normal respiratory effort and able to speak in complete sentences Cardio Rate: regular rate GI Inspection: Yes normal to inspection General: Yes no CVA tenderness Back/Spine/Pelvis Back: no CVA tenderness Skin General skin exam: no rashes or lesions noted Neuro General: patient oriented x3 Extrem General: Yes normal to inspection Psych Appearance: grossly normal and well kempt Mental Status: mental status grossly normal Speech and movement: Normal speech and movement present and Clear speech present Affect: normal affect Attitude: cooperative Thought process: Normal thought process present Thought content: Normal thought content present Insight: Fair insight present (Psych) Judgement: Fair judgement present (Psych) Results AMB Urinalysis, Automated UA Leukoctes 15 Marie/uL Last Edit by Kimberly Robbins on 11/26/24 14:06 UA Nitrite Last Edit by Kimberly Robbins on 11/26/24 14:06 UA Urobilinogen 0.2 mg/dL Last Edit by Kimberly Robbins on 11/26/24 14:06 UA Protein 15 mg/dL Last Edit by Kimberly Robbins on 11/26/24 14:06 UA pH 6.0 Last Edit by Kimberly Robbins on 11/26/24 14:06 UA Blood 0 Tray/uL Last Edit by Kimberly Robbins on 11/26/24 14:06 UA Specific [place] 1.020 Last Edit by Kimberly Robbins on 11/26/24 14:06 UA Ketone Last Edit by Kimberly Robbins on 11/26/24 14:06 UA Bilirubin 0 mg/dL Last Edit by Kimberly Robbins on 11/26/24 14:06 UA Glucose 0 mg/dL Last Edit by Kimberly Robbins on 11/26/24 14:06 Results Reviewed Results Reviewed: Laboratory Last Values Urine pH (Auto) 6.0 11/26/24 14:05 Specific [place] (Auto) 1.020 11/26/24 14:05 Urine Protein (Auto) 15 mg/dL 11/26/24 14:05 Glucose (UA)(Auto) 0 mg/dL 11/26/24 14:05 Urine Blood (Auto) 0 Tray/uL 11/26/24 14:05 Urine Bilirubin (Auto) 0 mg/dL 11/26/24 14:05 Urine Urobilinogen (Auto) 0.2 mg/dL 11/26/24 14:05 Leukocyte Esterase (Auto) 15 Marie/uL 11/26/24 14:05 Date of Service: 11/20/24 EXAMINATION: FINDINGS: RIGHT KIDNEY: 12.5 x 3.1 x 4.8 cm (SAG x AP x TRV). The kidney is normal in size, contour, and echogenicity. Renal cortical thickness is normal. No calculi or focal parenchymal lesions. No hydronephrosis. LEFT KIDNEY: 10.4 x 5.9 x 5.1 cm (SAG x AP x TRV). The kidney is normal in size, contour, and echogenicity. Renal cortical thickness is normal. There is an echogenic stone mid/lower pole measuring 0.4 x 0.3 x 0.3 cm. No hydronephrosis. IMPRESSION: Small echogenic nonobstructive stone mid/lower pole left kidney. No caliectasis or hydronephrosis seen. The right kidney is unremarkable. Assessment & Plan Assessment & Plan (1) Nephrolithiasis: Code(s): N20.0 - Calculus of kidney Category: Medical Plan In office urinalysis results reviewed with the patient today; as noted above. Recent renal imaging results reviewed with the patient today; as noted above. Discussed adding 1 oz of lemon juice to water daily. Start vitamin B6 as discussed and prescribed. We discussed at length potential causes of nephrolithiasis as well as importance of adequate hydration. Will obtain renal ultrasound in 6 months. We discussed metabolic workup to include Litholink; she declines at this time. Follow-up in 6 months with imaging to be completed prior; or sooner with any issues, concerns, and or questions. Orders: Orders AMB Urinalysis Automated Today Z13.9 - Encounter for screening, unspecified US renal BI 6 Months N20.0 - Calculus of kidney Medications: New pyridoxine (vitamin B6) 100 mg PO DAILY 90 days 90 tabs 1RF Patient Instructions: The patient had an opportunity to ask questions regarding the treatment plan. All questions were answered. Physical exam, labs, and imaging were discussed and reviewed in detail. As well as risks, benefits, and discussion of treatment choices. No major barriers to understanding were identified. The patient expressed understanding and agreement with the above treatment plan. The patient was made aware they should contact our office by phone for worsening of their current condition, the appearance of new symptoms, or with any questions or concerns. Compliance is encouraged with any medications and follow up testing that is ordered. It is a privilege to be allowed the opportunity to participate in? your urological care.? Again, if you have any questions or concerns If you have any questions or concerns please do not hesitate to contact me. The office is [phone]. This note is constructed using voice recognition software. While every effort has been made to ensure accuracy lvn errors may have been included. Yours sincerely, YASIR Stevenson Coding Level of Care Code Est Pt Level 4 (01606) Diagnoses Nephrolithiasis N20.0
--- OUTSIDE RECORDS SUMMARY | 2024-11-26 17:33 | XMS_ITS | Clinical Summary ---
Author Organization [facility] Address [address] [place] [phone] Phone Care Team Providers Care Medical Customer Service Representative Name Role Phone Unavailable Primary Care Provider Unavailabl e Social History Tobacco Use Types Packs/Day Years Used Date Smoking Tobacco: Never Assessed Comments Unknown Sex and Gender Information Value Date Recorded Sex Assigned at Not on file Legal Sex Female 4:16 PM EDT Gender Identity Not on file Sexual Orientation Not on file Plan of Treatment Health Maintenance Due Date Last Done Comments MMR Vaccines (1 of 1 - Stand rosio series) 2003 Varicella Vaccines (1 of 2 - 13+ 2-dose series) 2015 HPV Vaccines (1 - 3-dose series) 2017 Men B Vaccine (1 of 2 - Standard) 2018 DTaP,Tdap,and Td Vaccines (1 - Tdap) 2020 Hepatitis B Vaccines (1 of 3 - 19+ 3-dose series) 2021 Influenza Vaccines (#1) 2024 COVID-19 Vaccine (1 - 2023-2 5 season) 2024 HIB Vaccines Aged Out No longer eligi ble based on patient's age to complete this topic Hepatitis A Vaccines Aged Out No long er eligible based on patient's age to complete this topic IPV Vaccines Aged Out No longer eligi ble based on patient's age to complete this topic Meningococcal Vaccine Aged Out No aura edwin eligible based on patient's age to complete this topic Pneumococcal Vaccine Aged Out No long er eligible based on patient's age to complete this topic
--- OUTSIDE RECORDS SUMMARY | 2024-11-26 17:33 | XMS_ITS | Encounter Summary ---
Author Organization [facility] Address [address] [place], [place] [id number] Phone Care Team Providers Care Hose Wrapper Name Role Phone Unavailable Primary Care Provider Unavailabl e Encounter Details Date Type Department Care Team (Late st Contact Info) Description 01/12/2016 Documentation [facility] [place] Family Medicine [address] [place] [address] Family Medicine, Physician [facility] [place] [address] Social History Tobacco Use Types Packs/Day Years Used Date Smoking Tobacco: Never Assessed Comments Unknown Sex and Gender Information Value Date Recorded Sex Assigned at Not on file Legal Sex Female 4:16 PM EDT Gender Identity Not on file Sexual Orientation Not on file documented as of this encounter Plan of Treatment Not on file documented as of this encounter Visit Diagnoses Not on filedocumented in this encounter
== END 2024-11-26 14:24 | disposition home or self-care (01) ==
PROVIDERS: Visit Provider Nurse Practitioner Family
DX: Z13.9 Encounter for screening, unspecified (principal); N20.0 Calculus of kidney
CPT/HCPCS: 99214

== ENCOUNTER → 2024-11-26 13:40 | Outpatient (BNVA) | payer OTHER, SELFPAY | PROVIDERS: Visit Provider Nurse Practitioner Family | DX: I10 Essential (primary) hypertension (principal); E66.9 Obesity, unspecified; N20.0 Calculus of kidney | CPT/HCPCS: 81003; 99212 ==

== ENCOUNTER 2025-02-05 15:36 | Inpatient (IN) | payer OTHER, SELFPAY ==
[2025-02-05] VITALS (8 sets, daily range): BP systolic 173–189; BP diastolic 61–119; PULSE 111–124; RESP 16–22; TEMP 36.9–37.3; O2SAT 94–96; BMI 47.8
--- NOTE | ~2025-02-05 | US_ITS ---
CLINICAL HISTORY: HTN urgency US Renal with Doppler Comparison: US/FL/SR - US RENAL BI - 11/20/24 16:34 EST Findings: Right kidney measures 10.5 x 4.5 x 5.0 cm in size. The right kidney is of normal echotexture without focal lesion, nephrolithiasis, hydronephrosis. Duplex imaging of the right kidney is unremarkable with appropriate blood flow throughout the right kidney. Resistive index is 0.6. No elevated velocities. Left kidney measures 11.8 x 6.2 x 5.1 cm in size. Left kidney is of normal echotexture without mass lesion or hydronephrosis. Duplex imaging of the left kidney was performed. Resistive indices are within normal limits ranging between 0.5 and 0.7. Elevated velocity seen within the proximal left renal artery at 213 cm/sec. Renal veins are patent bilaterally. IMPRESSION: Elevated velocity within the proximal left renal artery concerning for less than 60% renal artery stenosis. Otherwise, unremarkable examination. This document has been electronically signed by: Omid Murguia MD on 02/07/2025 08:24:29
--- NOTE | ~2025-02-05 | US_ITS ---
CLINICAL HISTORY: HTN urgency US Renal with Doppler Comparison: US/DE/SR - US RENAL BI - 11/20/24 16:34 EST Findings: Right kidney measures 10.5 x 4.5 x 5.0 cm in size. The right kidney is of normal echotexture without focal lesion, nephrolithiasis, hydronephrosis. Duplex imaging of the right kidney is unremarkable with appropriate blood flow throughout the right kidney. Resistive index is 0.6. No elevated velocities. Left kidney measures 11.8 x 6.2 x 5.1 cm in size. Left kidney is of normal echotexture without mass lesion or hydronephrosis. Duplex imaging of the left kidney was performed. Resistive indices are within normal limits ranging between 0.5 and 0.7. Elevated velocity seen within the proximal left renal artery at 213 cm/sec. Renal veins are patent bilaterally. IMPRESSION: Elevated velocity within the proximal left renal artery concerning for less than 60% renal artery stenosis. Otherwise, unremarkable examination. This document has been electronically signed by: Omid Murguia MD on 02/07/2025 08:24:29
--- NOTE | ~2025-02-05 | XR_ITS ---
EXAMINATION: XR CHEST CLINICAL INFORMATION: cough, sob COMPARISON: 05/05/2021, 05/16/2014. TECHNIQUE: 2 views of the chest were obtained. FINDINGS: The cardiac, hilar, and mediastinal contours are normal. The lungs demonstrate loss of the right heart border, indicating a possible subtle right middle lobe pneumonia. Lungs otherwise clear. There is no pneumothorax or pleural effusion. There is no focal osseous or soft tissue abnormality. XR/XR chest 2V IMPRESSION: Loss of the right heart border, indicating a possible subtle right middle lobe pneumonia. Lungs otherwise clear. There are no effusions. Electronically signed by: Israel Cleaning MD 02/05/2025 04:15 PM EDT
--- NOTE | 2025-02-05 15:39 | ED_ITS ---
HPI - General Adult General Chief complaint: Nausea/Vomiting/Diarrhea Stated complaint: Vomiting, SOB Time Seen by Provider: 02/05/25 17:37 History of Present Illness ED Provider: Trinidad BROWN narrative: The patient is a 24-year-old woman with a history of asthma and hypertension who has felt unwell since yesterday. She has been coughing a great deal had a runny nose. She is not certain if she has had a fever or not. She has had some chest heaviness and shortness of breath. This afternoon she vomited a few times and thought that the vomit looked dark. It was at that point that the family decided that she should come to the hospital. She has not had any sense of pain or swelling in her legs. Her only medication is lisinopril 10 mg daily. Related Data Previous Rx's ?Medication ?Instructions ?Recorded pyridoxine (vitamin B6) 100 mg 100 mg PO DAILY 90 days #90 tabs 11/26/24 tablet Allergies Allergy/AdvReac Type Severity Reaction Status Date / Time No Known Allergies Allergy Verified 02/05/25 15:41 Review of Systems 2 Review of Systems: Yes all other systems are reviewed and are negative [facility] Past Medical History Medical History Hypertension Obese Surgical History Hx of tonsillectomy Social History Social History Are you a primary customer care specialist to a significant other at home: No Do you presently have visiting nurse or other home services: No Patient Tobacco Use Status: Never used Tobacco Smoked in Last 30 Days: No Use of substances other than those prescribed or required for medical reasons: No Advance Directives: No Advance Directives Information Provided: No Physical Exam ED Vital Signs: Vital Signs - 24 hr 02/05/25 15:38 02/05/25 18:00 02/05/25 19:28 Temperature 98.4 F 99.1 F Pulse Rate 124 H 114 H 113 H Respiratory Rate 22 H 20 18 Blood Pressure 174/119 H 174/61 H Pulse Oximetry 95 96 Oxygen Delivery Method Room Air Room Air 02/05/25 19:34 02/05/25 21:11 02/05/25 21:54 Temperature 99.2 F 98.6 F Pulse Rate 114 H 117 H 123 H Respiratory Rate 20 20 16 Blood Pressure 189/117 H 173/113 H Pulse Oximetry 94 94 Oxygen Delivery Method Room Air Room Air 02/05/25 22:39 02/05/25 22:58 02/06/25 00:36 Temperature 98.4 F 98.5 F Pulse Rate 114 H 111 H 124 H Respiratory Rate 20 20 20 Blood Pressure 174/98 H 173/107 H Pulse Oximetry 94 95 Oxygen Delivery Method Room Air Room Air BMI result Body Mass Index 47.8 Const Other: The patient is a 24-year-old female who was morbidly obese. She was awake and alert. She did not appear in overt respiratory distress. HENMT Other: Face is symmetrical. Mucous membranes moist. The posterior pharynx is unremarkable. Eyes General: appearance normal, both eyes and all related structures Conjunctivae: conjunctivae normal Pupils: Equal, round and reactive pupils present EOM: EOMs intact bilaterally Neck Neck: Yes full ROM Resp Other: No obvious increased work of breathing. She has crackles in the right lung and wheezes in both lungs. Cardio Rate: tachycardic Rhythm: regular rhythm Heart sounds: S1 normal heart sound present and S2 normal heart sound present GI Other: The abdomen is soft and nontender Skin General skin exam: no rashes or lesions noted Neuro Other: The patient is awake and alert. I think she has some cognitive impairment. However her cranial nerves are intact and she moves her extremities symmetrically and appropriately. No focal neurological deficit. Cranial nerves: Yes Equal, round and reactive pupils present Extrem Other: No obvious calf swelling or asymmetry or tenderness. No pitting edema. Course Course Course Narrative: This is an RME performed by Moy Arredondo CNP: Additional HPI, ROS, PE not included below will be deferred to primary provider. Patient is a 24-year-old female department who presents emergency department for evaluation reporting feeling generally unwell, vomiting yesterday and today, constant mid abdominal pain, chest heaviness described as ?someone sitting on it?, productive cough, shortness of breath, rhinorrhea. Denies any known sick contacts. Medications Administered Discontinued Medications Generic Name Dose Route Start Last Admin Trade Name Freq PRN Reason Stop Dose Admin Acetaminophen 975 mg 02/05/25 20:44 02/05/25 21:15 Acetaminophen 325 Mg Tablet PO 02/05/25 20:45 975 mg ONCE ONE Administration Ceftriaxone Sodium 1 gm 02/05/25 19:09 02/05/25 19:29 Ceftriaxone Sodium 1 Gm Vial IVPUSH 02/05/25 19:10 1 gm ONCE ONE Administration Sodium Chloride 1,000 mls @ 999 mls/hr 02/05/25 18:45 02/05/25 20:36 Ns IV 02/05/25 19:45 Infused .Q1H1M BASIM Infusion Azithromycin 500 mg/ Sodium 250 mls @ 125 mls/hr 02/05/25 19:09 02/05/25 21:54 Chloride IV 02/05/25 21:08 Infused ONCE ONE Infusion Lactated Ringer's 1,000 mls @ 999 mls/hr 02/05/25 20:45 02/05/25 22:38 Lr IV 02/05/25 21:45 Infused .Q1H1M BASIM Infusion Ketorolac Tromethamine 10 mg 02/05/25 23:50 02/05/25 23:58 Ketorolac Tromethamine 15 Mg/Ml Vial IVPUSH 02/05/25 23:51 10 mg ONCE ONE Administration Levalbuterol HCl 1.25 mg 02/05/25 19:18 02/05/25 19:27 Levalbuterol Hcl 1.25 Mg/3 Ml Vial.Neb INHALE 02/05/25 19:19 1.25 mg ONCE ONE Administration Levalbuterol HCl 1.25 mg 02/05/25 20:48 02/05/25 21:10 Levalbuterol Hcl 1.25 Mg/3 Ml Vial.Neb INHALE 02/05/25 20:49 1.25 mg ONCE ONE Administration Levalbuterol HCl 1.25 mg 02/06/25 00:30 02/06/25 00:36 Levalbuterol Hcl 1.25 Mg/3 Ml Vial.Neb INHALE 02/06/25 00:31 1.25 mg ONCE ONE Administration Methylprednisolone Sodium Succinate 80 mg 02/05/25 19:09 02/05/25 19:29 Methylprednisolone Sod Succ 125 Mg/2 Ml Vial IVPUSH 02/05/25 19:10 80 mg ONCE ONE Administration Medical Decision Making Medical Decision Making MDM Narrative: The patient is a 24-year-old female with a history of asthma who presents with 2 days of cough and shortness of breath. She has wheezes on exam. She was given bronchodilator treatments and IV steroids. There is a question of a possible right middle lobe pneumonia on her x-ray. Therefore blood cultures and antibiotics were initiated. She was also given IV fluids. Her lactate was normal. The patient is hypertensive but this seems to be chronic. She was persistently tachycardic. Given her persistent tachycardia and her chest complaints a D-dimer was checked which was normal. I think that her illness today is primarily an asthma exacerbation and there may be some degree of pneumonia as well. I had some hope that the patient might be well enough for discharge even though she remained tachycardic. However she became somewhat nauseated and seemed to feel somewhat for no clear reason and, given her persistent tachycardia I felt hospitalization was reasonable. The patient was hypertensive throughout her emergency room stay. This seems quite chronic however. Lab Data 02/05/25 16:12 02/05/25 16:12 Labs: Lab Results 02/05/25 02/05/25 02/05/25 Range/Units 16:12 19:23 21:01 WBC 9.8 (4.8-10.8) X10*3/uL RBC 5.51 H (4.20-5.50) X10*6/uL Hgb 14.3 (12.0-16.0) g/dl Hct 44.0 (37.0-47.0) % MCV 79.9 L (80.0-98.0) fL MCH 26.0 L (27.0-33.0) pg MCHC 32.5 (31.0-35.0) g/dl RDW 15.3 (11.0-16.0) % Plt Count 272 (160-400) X10*3/uL MPV 9.7 (9.4-12.3) fL Immature Gran % (Auto) 0.1 (0.0-0.4) % Neut % (Auto) 79.5 H (45-73) % Lymph % (Auto) 11.5 L (20-40) % [place] % (Auto) 5.5 (2-11) % Eos % (Auto) 3.1 (0-4) % Baso % (Auto) 0.3 (0-2) % Lymph # (Auto) 1.1 L (1.2-4.9) X10*3/uL [place] # (Auto) 0.5 (0.1-1.2) X10*3/uL Eos # (Auto) 0.3 (0.0-0.4) X10*3/uL Baso # (Auto) 0.0 (0.0-0.2) X10*3/uL Abs Immat Gran (auto) 0.01 (0.00-0.03) X10*3/uL Absolute Neuts (auto) 7.8 (2.0-8.3) x10*3/uL Absolute Nucleated RBC 0.000 (0.0-0.012) X10*3/uL Nucleated RBC % (auto) 0.0 (0.0-0.2) /100WBC PT 13.2 H (10.9-12.4) SEC INR 1.1 (0.9-1.1) D-Dimer High Sensitivty NG/ML Sodium 141 (135-145) mmol/L Potassium 3.9 (3.3-5.1) mmol/L Chloride 111 H (96-108) mmol/L Carbon Dioxide 22 (22-29) mmol/L Anion Gap 12 (12-20) BUN 10 (9-16) mg/dL Creatinine 0.74 (0.5-1.4) mg/dL Estim Creat Clear Calc 156.9 Estimated GFR > 60 Random Glucose 102 (60-115) mg/dL Lactic Acid 1.4 (0.5-2.0) mmol/L Calcium 9.0 (8.4-10.2) mg/dL Total Bilirubin 0.5 (0.0-1.0) mg/dL AST 18 (5-31) U/L ALT 29 (0-31) U/L Alkaline Phosphatase 71 (39-117) U/L Troponin I High Sens < 2.7 (<3.5-17.0) ng/L C-Reactive Protein 3.39 H (< or = 0.50) mg/dL Total Protein 7.7 (6.5-8.0) g/dL Albumin 4.1 (3.5-5.0) g/dL Lipase 12 (8-78) U/L Beta HCG, Quant < 2 mIU/mL Urine Color Yellow Urine Appearance Clear Urine pH 6.0 (5.0-9.0) Ur Specific [place] 1.020 (1.005-1.025) Urine Protein Trace (Neg-Trace) mg/dL Urine Glucose (UA) Negative (Negative) mg/dL Urine Ketones 15 (Negative) mg/dL Urine Blood Large (3+) H (Negative) Urine Nitrite Negative (Negative) Ur Leukocyte Esterase Trace H (Negative) Urine RBC >20 H (0-2) /HPF Urine WBC 6-10 H (0-5) /HPF Ur Squamous Epith Cells 3-5 (0-2) /HPF Urine Bacteria 1+ (None Seen) Hyaline Casts 0-2 (0-2) /LPF Urine Test NEGATIVE (NEGATIVE) Influenza Type A (PCR) NEGATIVE (Negative) Influenza Type B (PCR) NEGATIVE (Negative) RSV RNA Qual (PCR) NEGATIVE (Negative) SARS-CoV-2 RNA (RT-PCR) NEGATIVE (Negative) 02/05/25 Range/Units 23:26 WBC (4.8-10.8) X10*3/uL RBC (4.20-5.50) X10*6/uL Hgb (12.0-16.0) g/dl Hct (37.0-47.0) % MCV (80.0-98.0) fL MCH (27.0-33.0) pg MCHC (31.0-35.0) g/dl RDW (11.0-16.0) % Plt Count (160-400) X10*3/uL MPV (9.4-12.3) fL Immature Gran % (Auto) (0.0-0.4) % Neut % (Auto) (45-73) % Lymph % (Auto) (20-40) % [place] % (Auto) (2-11) % Eos % (Auto) (0-4) % Baso % (Auto) (0-2) % Lymph # (Auto) (1.2-4.9) X10*3/uL [place] # (Auto) (0.1-1.2) X10*3/uL Eos # (Auto) (0.0-0.4) X10*3/uL Baso # (Auto) (0.0-0.2) X10*3/uL Abs Immat Gran (auto) (0.00-0.03) X10*3/uL Absolute Neuts (auto) (2.0-8.3) x10*3/uL Absolute Nucleated RBC (0.0-0.012) X10*3/uL Nucleated RBC % (auto) (0.0-0.2) /100WBC PT (10.9-12.4) SEC INR (0.9-1.1) D-Dimer High Sensitivty 181 NG/ML Sodium (135-145) mmol/L Potassium (3.3-5.1) mmol/L Chloride (96-108) mmol/L Carbon Dioxide (22-29) mmol/L Anion Gap (12-20) BUN (9-16) mg/dL Creatinine (0.5-1.4) mg/dL Estim Creat Clear Calc Estimated GFR Random Glucose (60-115) mg/dL Lactic Acid (0.5-2.0) mmol/L Calcium (8.4-10.2) mg/dL Total Bilirubin (0.0-1.0) mg/dL AST (5-31) U/L ALT (0-31) U/L Alkaline Phosphatase (39-117) U/L Troponin I High Sens (<3.5-17.0) ng/L C-Reactive Protein (< or = 0.50) mg/dL Total Protein (6.5-8.0) g/dL Albumin (3.5-5.0) g/dL Lipase (8-78) U/L Beta HCG, Quant mIU/mL Urine Color Urine Appearance Urine pH (5.0-9.0) Ur Specific [place] (1.005-1.025) Urine Protein (Neg-Trace) mg/dL Urine Glucose (UA) (Negative) mg/dL Urine Ketones (Negative) mg/dL Urine Blood (Negative) Urine Nitrite (Negative) Ur Leukocyte Esterase (Negative) Urine RBC (0-2) /HPF Urine WBC (0-5) /HPF Ur Squamous Epith Cells (0-2) /HPF Urine Bacteria (None Seen) Hyaline Casts (0-2) /LPF Urine Test (NEGATIVE) Influenza Type A (PCR) (Negative) Influenza Type B (PCR) (Negative) RSV RNA Qual (PCR) (Negative) SARS-CoV-2 RNA (RT-PCR) (Negative) Discharge Plan Discharge Clinical Impression: Pneumonia, Acute asthma exacerbation Patient Disposition: Admitted As Inpatient Print Language: Setswana
--- NOTE | 2025-02-05 15:41 | ECG_ITS ---
Test Reason : chest tightness Blood Pressure : */* mmHG Vent. Rate : 119 BPM Atrial Rate : 119 BPM P-R Int : 116 ms QRS Dur : 82 ms QT Int : 326 ms P-R-T Axes : 21 16 55 degrees QTcB Int : 458 ms Sinus tachycardia Minimal voltage criteria for LVH, may be normal variant ( R in aVL ) Nonspecific ST abnormality Abnormal ECG When compared with ECG of 04-Aug-2024 21:15, No significant change was found Referred By: Bryanna Arredondo Electronically Signed By: Jan Spain
--- OUTSIDE RECORDS SUMMARY | 2025-02-05 16:08 | XMS_ITS | Clinical Summary ---
Author Organization [facility] Address [address] [place] [phone] Phone Care Team Providers Care Technology Administrator Name Role Phone Unavailable Primary Care Provider [...]
--- OUTSIDE RECORDS SUMMARY | 2025-02-05 16:08 | XMS_ITS | Encounter Summary ---
Author Organization [facility] Address [address] [place] [phone] Phone Care Team Providers Care Housekeeper Manager Name Role Phone Unavailable Primary Care Provider Unavailabl e Encounter Details Date Type Department Care Team (Late st Contact Info) Description 01/12/2016 Documentation [facility] [place] Family Medicine [address] [place] [address] Family Medicine, Physician [facility] [place] [address] Social History Tobacco Use Types [...]
[2025-02-05 16:16] LABS: MANUAL DIFF FLAG NO
[2025-02-05 16:18] LABS: Basophils Percent Auto 0.3 % (0-2); Eosinophils Absolute Auto 0.3 X10*3/uL (0.0-0.4); Eosinophils Percent Auto 3.1 % (0-4); Hemoglobin 14.3 g/dl (12.0-16.0); Imm Gran Abs Auto 0.01 X10*3/uL (0.00-0.03); Imm Gran Pct Auto 0.1 % (0.0-0.4); Lymphocytes Absolute Auto 1.1 X10*3/uL (1.2-4.9); Lymphocytes Percent Auto 11.5 % (20-40); Mean Corpuscular HGB Conc 32.5 g/dl (31.0-35.0); Mean Corpuscular Volume 79.9 fL (80.0-98.0); Mean Platelet Volume 9.7 fL (9.4-12.3); Monocytes Absolute Auto 0.5 X10*3/uL (0.1-1.2); Monocytes Percent Auto 5.5 % (2-11); Neutrophils Absolute Auto 7.8 x10*3/uL (2.0-8.3); Neutrophils Percent Auto 79.5 % (45-73); Platelet Count 272 X10*3/uL (160-400); Red Blood Count 5.51 X10*6/uL (4.20-5.50); Red Cell Distribution Width 15.3 % (11.0-16.0); White Blood Count 9.8 X10*3/uL (4.8-10.8)
[2025-02-05 16:25] LABS: INTERNATIONAL NORM RATIO 1.1 (0.9-1.1); Prothrombin Time 13.2 SEC (10.9-12.4)
[2025-02-05 16:32] LABS: Alanine Aminotransferase 29 U/L (0-31); Albumin Level 4.1 g/dL (3.5-5.0); Alkaline Phosphatase 71 U/L (39-117); Anion Gap 12 (12-20); Aspartate Amino Transferase 18 U/L (5-31); Bilirubin Total 0.5 mg/dL (0.0-1.0); Blood Urea Nitrogen 10 mg/dL (9-16); Carbon Dioxide 22 mmol/L (22-29); Chloride 111 mmol/L (96-108); Creatinine Clr Calc Pharmacy 156.9; Estimated Glomerular Filt Rate > 60; Glucose Random 102 mg/dL (60-115); Lipase 12 U/L (8-78); Potassium 3.9 mmol/L (3.3-5.1); Sodium 141 mmol/L (135-145); Total Protein 7.7 g/dL (6.5-8.0)
[2025-02-05 16:40] LABS: Troponin-I High Sensitivity < 2.7 ng/L (<3.5-17.0)
[2025-02-05 17:00] LABS: Influenza A PCR NEGATIVE (Negative); Influenza B PCR NEGATIVE (Negative); Resp Syncy Virus RNA Qual PCR NEGATIVE (Negative); SARS COV2 PCR INHOUSE NEGATIVE (Negative)
[2025-02-05 18:01] LABS: C Reactive Protein 3.39 mg/dL (< or = 0.50); HCG Quantitative < 2 mIU/mL
[2025-02-05] MEDS: 0.9 % Sodium Chloride 1,000 ML 999 ML IV (19:00)
[2025-02-05] MEDS: levalbuterol HCL 1.25 MG/3 ML VIAL.NEB INHALE ×2 (19:27→21:10)
[2025-02-05] MEDS: cefTRIAXone sodium 1 GM VIAL IVPUSH (19:29)
[2025-02-05] MEDS: methylPREDNISolone Sod Succ 125 MG/2 ML VIAL 80 MG IVPUSH (19:29)
[2025-02-05] MEDS: Azithromycin 500 MG in 0.9 % Sodium Chloride 250 ML 125 MG IV (19:30)
[2025-02-05 19:42] LABS: Lactic Acid 1.4 mmol/L (0.5-2.0)
[2025-02-05 21:08] LABS: Appearance Urine Clear; Color Urine Yellow; Glucose Urine UA Negative (Negative); Leukocyte Esterase Urine Trace (Negative); Nitrite Urine Negative (Negative); UMIC TRIGGER UACC YES; Urine Blood Large (3+) (Negative); Urine Ketones 15 mg/dL (Negative); Urine Protein Trace mg/dL (Neg-Trace)
[2025-02-05 21:09] LABS: UPreg QC Valid YES; Urine Pregnancy NEGATIVE (NEGATIVE)
[2025-02-05 21:13] LABS: Bacteria Urine 1+ (None Seen); Hyaline Casts Urine 0-2 /LPF (0-2); RBC Urine >20 /HPF (0-2); UACC Culture Trigger YES
[2025-02-05] MEDS: Acetaminophen 325 MG TABLET 975 MG PO (21:15)
[2025-02-05] MEDS: Lactated Ringers 1,000 ML 999 ML IV (21:16)
[2025-02-05 23:41] LABS: D Dimer High Sensitivity 181 NG/ML
[2025-02-05] MEDS: Ketorolac Tromethamine 15 MG/ML VIAL 10 MG IVPUSH (23:58)
[2025-02-06] VITALS (15 sets, daily range): BP systolic 137–194; BP diastolic 62–109; PULSE 98–124; RESP 18–26; TEMP 36.4–37.4; O2SAT 91–98
[2025-02-06] MEDS: levalbuterol HCL 1.25 MG/3 ML VIAL.NEB INHALE ×5 (00:36→20:14)
--- NOTE | 2025-02-06 03:27 | P.HPHOSP_ITS ---
History of Present Illness Date of Service: 02/06/25 Chief Complaint: sob 24-year-old female with a past medical history of elevated BMI, hypertension presented to the hospital with a chief complaint of cough and shortness of breath. Most of the history obtained from the patient and patient's mom at bedside. Reportedly patient has been having shortness of breath for about 3 days with cough and sputum production. Denies any fevers. Denies any sick contacts. Mentions she has asthma in the past but has not bothered her in the past 6-8 years. Denies any chest pain or palpitations. Denies any headaches or blurry visions. Denies any GI or symptoms. Patient mother reports that patient was diagnosed with high blood pressure about 6 months ago and has been prescribed lisinopril at the urgent care. She has no primary care currently because of the insurance concerns currently she fixed her insurance and is about to set up a follow-up with the PCP. Review of all other systems is negative except mentioned above ER course: Per ER team, patient on presentation noted to have bilateral wheezing, chest x-ray concerning for possible pneumonia-given nebulizers, steroids, antibiotics. Also noted to have elevated blood pressure. [facility] Medical History Hypertension Obese Surgical History Hx of tonsillectomy Social History Are you a primary director day care center to a significant other at home: No Do you presently have visiting nurse or other home services: No Patient Tobacco Use Status: Never used Tobacco Smoked in Last 30 Days: No Use of substances other than those prescribed or required for medical reasons: No Advance Directives: No Advance Directives Information Provided: No Meds Allergies Allergy/AdvReac Type Severity Reaction Status Date / Time No Known Allergies Allergy Verified 02/05/25 15:41 Active Medications: Current Medications Acetaminophen (Acetaminophen 325 Mg Tablet) 650 mg PO Q6H PRN PRN Reason: Pain, Mild 1-3,fever,headache Albuterol/Ipratropium (Albuterol/Iprat 2.5/0.5mg 3 Ml Ampul.Neb) 3 ml INHALE Q4H PRN PRN Reason: Shortness of Breath/Wheezing Azithromycin (Azithromycin 500 Mg Tablet) 500 mg PO Q24H BASIM Benzonatate (Benzonatate 100 Mg Capsule) 100 mg PO TID PRN PRN Reason: Cough Calcium Carbonate (Calcium Carbonate 750 Mg Tab.Chew) 750 mg PO Q4H PRN PRN Reason: Heartburn Ceftriaxone Sodium (Ceftriaxone Sodium 1 Gm Vial) 1 gm IVPUSH Q24H BASIM Enoxaparin Sodium (Enoxaparin Sodium 40 Mg/0.4 Ml Syringe) 40 mg SUBCUT Q12H BASIM Labetalol HCl (Labetalol Hcl 100 Mg Tablet) 100 mg PO BID BASIM; Protocol Levalbuterol HCl (Levalbuterol Hcl 1.25 Mg/3 Ml Vial.Neb) 1.25 mg INHALE RQ4H WHILE AWAKE PRN PRN Reason: Shortness of Breath/Wheezing Magnesium Hydroxide (Milk Of Magnesia 30 Ml Oral.Susp) 30 ml PO DAILY PRN PRN Reason: Constipation Melatonin (Melatonin 3 Mg Tablet) 6 mg PO BEDTIME PRN PRN Reason: Insomnia Methylprednisolone Sodium Succinate (Methylprednisolone Sod Succ 40 Mg/Ml Vial) 40 mg IVPUSH Q8H BASIM Sodium Chloride (0.9 % Sodium Chloride Flush 3 Ml Syringe) 3 ml IVFLUSH QSHIFT BASIM Physical Exam 2 Vital Signs and Narrative: Vital Signs: Last Vital Signs Temp 98.5 F 02/06/25 02:52 Pulse 121 H 02/06/25 02:52 Resp 26 H 02/06/25 02:52 BP 169/103 H 02/06/25 02:52 Pulse Ox 94 02/06/25 02:52 O2 Del Method Room Air 02/06/25 02:52 BMI result Body Mass Index 47.8 Gen: Appears be in no acute distress ; facial hair noted on the jaw HEENT: NCAT, Moist mucosa. Pulmonary: Vesicular breath sounds, fair air entry CVS: Normal S1-S2 Abdomen: BS+, Soft, Nontender Extremities: Warm well perfused Neuro: Alert and awake. Results Labs 02/05/25 16:12 02/05/25 16:12 Labs: Laboratory Results - last 24 hr 02/05/25 02/05/25 02/05/25 16:12 19:23 21:01 MCV 79.9 L MCH 26.0 L MCHC 32.5 RDW 15.3 Plt Count 272 MPV 9.7 Immature Gran % (Auto) 0.1 Neut % (Auto) 79.5 H Lymph % (Auto) 11.5 L [place] % (Auto) 5.5 Eos % (Auto) 3.1 Baso % (Auto) 0.3 Lymph # (Auto) 1.1 L [place] # (Auto) 0.5 Eos # (Auto) 0.3 Baso # (Auto) 0.0 Abs Immat Gran (auto) 0.01 Absolute Neuts (auto) 7.8 Absolute Nucleated RBC 0.000 Nucleated RBC % (auto) 0.0 PT 13.2 H INR 1.1 D-Dimer High Sensitivty Anion Gap 12 Estim Creat Clear Calc 156.9 Estimated GFR > 60 Random Glucose 102 Lactic Acid 1.4 Calcium 9.0 Total Bilirubin 0.5 AST 18 ALT 29 Alkaline Phosphatase 71 C-Reactive Protein 3.39 H Total Protein 7.7 Albumin 4.1 Lipase 12 Beta HCG, Quant < 2 Urine Color Yellow Urine Appearance Clear Urine pH 6.0 Ur Specific [place] 1.020 Urine Protein Trace Urine Glucose (UA) Negative Urine Ketones 15 Urine Blood Large (3+) H Urine Nitrite Negative Ur Leukocyte Esterase Trace H Urine RBC >20 H Urine WBC 6-10 H Ur Squamous Epith Cells 3-5 Urine Bacteria 1+ Hyaline Casts 0-2 Urine Test NEGATIVE Influenza Type A (PCR) NEGATIVE Influenza Type B (PCR) NEGATIVE RSV RNA Qual (PCR) NEGATIVE SARS-CoV-2 RNA (RT-PCR) NEGATIVE 02/05/25 23:26 MCV MCH MCHC RDW Plt Count MPV Immature Gran % (Auto) Neut % (Auto) Lymph % (Auto) [place] % (Auto) Eos % (Auto) Baso % (Auto) Lymph # (Auto) [place] # (Auto) Eos # (Auto) Baso # (Auto) Abs Immat Gran (auto) Absolute Neuts (auto) Absolute Nucleated RBC Nucleated RBC % (auto) PT INR D-Dimer High Sensitivty 181 Anion Gap Estim Creat Clear Calc Estimated GFR Random Glucose Lactic Acid Calcium Total Bilirubin AST ALT Alkaline Phosphatase C-Reactive Protein Total Protein Albumin Lipase Beta HCG, Quant Urine Color Urine Appearance Urine pH Ur Specific [place] Urine Protein Urine Glucose (UA) Urine Ketones Urine Blood Urine Nitrite Ur Leukocyte Esterase Urine RBC Urine WBC Ur Squamous Epith Cells Urine Bacteria Hyaline Casts Urine Test Influenza Type A (PCR) Influenza Type B (PCR) RSV RNA Qual (PCR) SARS-CoV-2 RNA (RT-PCR) Imaging Radiologist's Impressions: Impressions Chest X-Ray 02/05/25 15:40 IMPRESSION: Loss of the right heart border, indicating a possible subtle right middle lobe pneumonia. Lungs otherwise clear. There are no effusions. Electronically signed by: Israel Cleaning MD 02/05/2025 04:15 PM EDT RP Assessment and Plan (1) Acute asthma exacerbation: Qualifiers: Asthma severity: unspecified severity Asthma persistence: unspecified Qualified Code(s): J45.901 - Unspecified asthma with (acute) exacerbation Status: Acute Plan 24-year-old female with a past medical history of elevated BMI, hypertension presented to the hospital with a chief complaint of cough and shortness of breath. admitted for following Acute asthma exacerbation: pneumonia Continue nebulizations standing and p.r.n. Continue Solu-Medrol continue ceftriaxone and azithromycin Follow up cultures hypertensive urgency: Patient blood pressure was elevated with diastolic in the 1 teens. Reportedly diagnosed with high blood pressure about 6 months ago and has been on lisinopril as outpatient. Will discontinue lisinopril Will start the patient on labetalol 100 mg b.i.d. Renal ultrasound Echocardiogram Nephrology consult For further inputs elevated BMI: recommended outpatient weight management clinic follow-up DVT prophylaxis: Lovenox Code status: Full code Quality Stroke Does the patient have a stroke diagnosis?: No VTE Prior VTE?: No VTE Risk Level:: Medical - moderate - high VTE Device Contraindication: Treatment Not Indicated VTE Drug Contraindication: N/A - Med Ordered
[2025-02-06] MEDS: methylPREDNISolone Sod Succ 40 MG/ML VIAL IVPUSH ×3 (03:39→20:01)
[2025-02-06] MEDS: Labetalol HCL 100 MG TABLET PO (03:39)
[2025-02-06 05:20] LABS: Hematocrit 41.8 % (37.0-47.0); Hemoglobin 13.2 g/dl (12.0-16.0); Mean Corpuscular HGB Conc 31.6 g/dl (31.0-35.0); Mean Corpuscular Hemoglobin 25.5 pg (27.0-33.0); Mean Corpuscular Volume 80.9 fL (80.0-98.0); Mean Platelet Volume 9.9 fL (9.4-12.3); Platelet Count 280 X10*3/uL (160-400); Red Blood Count 5.17 X10*6/uL (4.20-5.50); Red Cell Distribution Width 15.5 % (11.0-16.0); White Blood Count 8.4 X10*3/uL (4.8-10.8)
[2025-02-06 05:47] LABS: Alanine Aminotransferase 33 U/L (0-31); Alkaline Phosphatase 69 U/L (39-117); Anion Gap 13 (12-20); Aspartate Amino Transferase 21 U/L (5-31); Bilirubin Total 0.4 mg/dL (0.0-1.0); Blood Urea Nitrogen 12 mg/dL (9-16); Calcium 9.2 mg/dL (8.4-10.2); Carbon Dioxide 19 mmol/L (22-29); Chloride 113 mmol/L (96-108); Creatinine Clr Calc Pharmacy 161.2; Estimated Glomerular Filt Rate > 60; Glucose Random 142 mg/dL (60-115); Potassium 3.7 mmol/L (3.3-5.1); Sodium 141 mmol/L (135-145); Total Protein 7.7 g/dL (6.5-8.0)
--- NOTE | 2025-02-06 07:44 | PHA.MEDREC ---
Addendum entered by Vandana Castellanos RPh 02/06/25 07:52: med rec reviewed by zoila Original Note: Pharmacy Consult ? Medication Reconciliation Pharmacy has completed the medication reconciliation. Spoke with patient and her mom to confirm. She is not taking vitamin B6.
--- NOTE | 2025-02-06 07:57 | PC.NURSE ---
ultrasound being completed at this time.
[2025-02-06] MEDS: 0.9 % Sodium Chloride Flush 3 ML SYRINGE IVFLUSH ×3 (07:58→20:01)
[2025-02-06] MEDS: Enoxaparin Sodium 40 MG/0.4 ML SYRINGE SUBCUT ×2 (09:08→20:02)
[2025-02-06] MEDS: Acetaminophen 325 MG TABLET 650 MG PO (09:08)
--- NOTE | 2025-02-06 10:13 | MHC.CM.PN ---
CM met with pt and her mother in room, she does not have a PCP, brochure given. Pt does not use DME or home health services, Mother to transport home at DC. DCP: home, self care, CM to follow for DC needs.
[2025-02-06] MEDS: lisinopriL 10 MG TABLET PO (10:38)
--- NOTE | 2025-02-06 12:27 | PM.EVENT ---
Event Note Date of Service: 02/06/25 Event Note: Chart reviewed patient examined. Agree with H&P and plan as outlined. Exam consistent with asthma exacerbation. Discussed with Renal we will resume lisinopril and add amlodipine. Renal will follow in office this week after discharge Time Spent With Patient Time: Total time managing care of this patient today ____ minutes.
[2025-02-06] MEDS: amLODIPine Besylate 10 MG TABLET PO (12:36)
[2025-02-06] MEDS: cefTRIAXone sodium 1 GM VIAL IVPUSH (20:01)
[2025-02-06] MEDS: Labetalol HCL 200 MG TABLET PO (20:01)
[2025-02-06] MEDS: Azithromycin 500 MG TABLET PO (20:01)
--- NOTE | 2025-02-06 21:02 | PC.NURSE ---
Assumed care of this patient at 19:00. MULTIFOLD OPERATOR notified headline writer this patient's BP was 196/106 on cuff pressure on left forearm this evening. Fuel Cell Builder responded to room, patient assessed and manual BP was taken showing 180/62. Pt was asked if she takes blood pressure medication to which she replied she wasn't sure. Tele showing ST 110-120's. Patient denied headache, blurry vision or vision changes, dizziness, nausea, chest pain, palpitations or other acute s/s r/t vitals. A&Ox4. Speaking clearly in full sentences with breathing even and unlabored without distress. Covering Dr. Esqueda notified with order placed for 200mg po labetalol. Medication was not stocked on the unit, so it was administered as soon as it was obtained by this headline writer. orders to reassess 22:00. Plan of care continues.
[2025-02-07] VITALS (15 sets, daily range): BP systolic 140–180; BP diastolic 80–108; PULSE 87–115; RESP 16–20; TEMP 36.4–37.2; O2SAT 91–98
[2025-02-07] MEDS: methylPREDNISolone Sod Succ 40 MG/ML VIAL IVPUSH ×2 (04:02→11:23)
[2025-02-07 07:37] LABS: MANUAL DIFF FLAG NO
[2025-02-07] MEDS: levalbuterol HCL 1.25 MG/3 ML VIAL.NEB INHALE ×5 (07:37→23:32)
[2025-02-07 07:46] LABS: Basophils Percent Auto 0.1 % (0-2); Hematocrit 40.7 % (37.0-47.0); Hemoglobin 12.9 g/dl (12.0-16.0); Imm Gran Abs Auto 0.06 X10*3/uL (0.00-0.03); Imm Gran Pct Auto 0.5 % (0.0-0.4); Lymphocytes Absolute Auto 1.2 X10*3/uL (1.2-4.9); Lymphocytes Percent Auto 9.3 % (20-40); Mean Corpuscular HGB Conc 31.7 g/dl (31.0-35.0); Mean Corpuscular Hemoglobin 25.7 pg (27.0-33.0); Mean Corpuscular Volume 81.1 fL (80.0-98.0); Monocytes Absolute Auto 0.4 X10*3/uL (0.1-1.2); Neutrophils Absolute Auto 11.5 x10*3/uL (2.0-8.3); Neutrophils Percent Auto 87.1 % (45-73); Platelet Count 296 X10*3/uL (160-400); Red Blood Count 5.02 X10*6/uL (4.20-5.50); Red Cell Distribution Width 16.1 % (11.0-16.0); White Blood Count 13.2 X10*3/uL (4.8-10.8)
[2025-02-07 08:00] LABS: Alanine Aminotransferase 64 U/L (0-31); Albumin Level 3.9 g/dL (3.5-5.0); Alkaline Phosphatase 67 U/L (39-117); Anion Gap 11 (12-20); Aspartate Amino Transferase 29 U/L (5-31); Bilirubin Total 0.3 mg/dL (0.0-1.0); Blood Urea Nitrogen 16 mg/dL (9-16); Calcium 8.8 mg/dL (8.4-10.2); Carbon Dioxide 20 mmol/L (22-29); Chloride 114 mmol/L (96-108); Creatinine Clr Calc Pharmacy 165.9; Estimated Glomerular Filt Rate > 60; Glucose Fasting 139 mg/dL (60-99); Potassium 4.2 mmol/L (3.3-5.1); Sodium 141 mmol/L (135-145); Total Protein 7.6 g/dL (6.5-8.0)
[2025-02-07] MEDS: 0.9 % Sodium Chloride Flush 3 ML SYRINGE IVFLUSH ×3 (08:07→20:00)
[2025-02-07] MEDS: amLODIPine Besylate 10 MG TABLET PO (08:07)
[2025-02-07] MEDS: lisinopriL 20 MG TABLET PO (08:07)
[2025-02-07] MEDS: Enoxaparin Sodium 40 MG/0.4 ML SYRINGE SUBCUT ×2 (08:07→19:59)
[2025-02-07] MEDS: Benzonatate 100 MG CAPSULE PO ×2 (08:07→17:11)
--- NOTE | 2025-02-07 12:15 | P.PNIM_ITS ---
Subjective Subjective Date of Service: 02/07/25 Interval History: Some wheezing overnight requiring supplemental O2. Now with productive cough Review of Systems Denies chest pain Admits shortness of breath which has worsened Denies nausea vomiting diarrhea Denies fever chills Physical Exam 2 Vital Signs: Vital Signs: Last Vital Signs Temp 98.9 F 02/07/25 11:20 Pulse 109 H 02/07/25 11:20 Resp 19 02/07/25 11:05 BP 144/85 H 02/07/25 11:20 Pulse Ox 95 02/07/25 11:20 O2 Del Method Nasal Cannula 02/07/25 11:20 O2 Flow Rate 1 02/07/25 11:20 BMI result Body Mass Index 47.8 Const: Other: Awake alert no acute distress able to speak in full sentences Resp: Other: Diffuse scattered expiratory wheezes; good aeration to bases Cardio: Other: No S4; positive S1-S2; no S3 murmurs rubs or gallops GI: Other: Soft nontender nondistended normoactive bowel sounds Extrem: Other: No edema bilaterally Objective Data Active Medications Acetaminophen (Acetaminophen 325 Mg Tablet) 650 mg PO Q6H PRN PRN Reason: Pain, Mild 1-3,fever,headache Last Admin: 02/06/25 09:08 Dose: 650 mg Documented By: FARHAN Amlodipine Besylate (Amlodipine Besylate 10 Mg Tablet) 10 mg PO DAILY [facility]; Protocol Last Admin: 02/07/25 08:07 Dose: 10 mg Documented By: SUMMER Benzonatate (Benzonatate 100 Mg Capsule) 100 mg PO TID PRN PRN Reason: Cough Last Admin: 02/07/25 08:07 Dose: 100 mg Documented By: SUMMER Calcium Carbonate (Calcium Carbonate 750 Mg Tab.Chew) 750 mg PO Q4H PRN PRN Reason: Heartburn Ceftriaxone Sodium (Ceftriaxone Sodium 1 Gm Vial) 1 gm IVPUSH Q24H [facility] Last Admin: 02/06/25 20:01 Dose: 1 gm Documented By: ELIO Doxycycline Monohydrate (Doxycycline Monohydrate 100 Mg Capsule) 100 mg PO Q12H [facility] Enoxaparin Sodium (Enoxaparin Sodium 40 Mg/0.4 Ml Syringe) 40 mg SUBCUT Q12H [facility] Last Admin: 02/07/25 08:07 Dose: 40 mg Documented By: SUMMER Levalbuterol HCl (Levalbuterol Hcl 1.25 Mg/3 Ml Vial.Neb) 1.25 mg INHALE Q4H [facility] Lisinopril (Lisinopril 20 Mg Tablet) 20 mg PO DAILY [facility]; Protocol Last Admin: 02/07/25 08:07 Dose: 20 mg Documented By: SUMMER Magnesium Hydroxide (Milk Of Magnesia 30 Ml Oral.Susp) 30 ml PO DAILY PRN PRN Reason: Constipation Melatonin (Melatonin 3 Mg Tablet) 6 mg PO BEDTIME PRN PRN Reason: Insomnia Methylprednisolone Sodium Succinate (Methylprednisolone Sod Succ 125 Mg/2 Ml Vial) 60 mg IVPUSH Q6H [facility] Sodium Chloride (0.9 % Sodium Chloride Flush 3 Ml Syringe) 3 ml IVFLUSH QSHIFT BASIM Last Admin: 02/07/25 08:07 Dose: 3 ml Documented By: SUMMER Labs 02/07/25 07:03 02/07/25 07:03 Labs: Laboratory Results - last 24 hr 02/07/25 07:03 MCV 81.1 MCH 25.7 L MCHC 31.7 RDW 16.1 H Plt Count 296 MPV 10.0 Immature Gran % (Auto) 0.5 H Neut % (Auto) 87.1 H Lymph % (Auto) 9.3 L [place] % (Auto) 3.0 Eos % (Auto) 0.0 Baso % (Auto) 0.1 Lymph # (Auto) 1.2 [place] # (Auto) 0.4 Eos # (Auto) 0.0 Baso # (Auto) 0.0 Abs Immat Gran (auto) 0.06 H Absolute Neuts (auto) 11.5 H Absolute Nucleated RBC 0.000 Nucleated RBC % (auto) 0.0 Anion Gap 11 L Estim Creat Clear Calc 165.9 Estimated GFR > 60 Fasting Glucose 139 H Calcium 8.8 Total Bilirubin 0.3 AST 29 ALT 64 H Alkaline Phosphatase 67 Total Protein 7.6 Albumin 3.9 Microbiology Microbiology Results: Microbiology 02/05/25 21:01 Urine Culture - Final Urine clean catch - Clean Catch Midstream 02/05/25 19:23 Blood Culture - Preliminary Blood - Venous No growth after 24 hours. 02/05/25 19:00 Blood Culture - Preliminary Blood - Venous No growth after 24 hours. Assessment and Plan (1) Acute asthma exacerbation: Status: Acute Plan 24-year-old female with a past medical history of elevated BMI, hypertension presented to the hospital with a chief complaint of cough and shortness of breath. admitted for following 1.Acute asthma exacerbation: pneumonia -increase methylprednisolone to 60 mg q.6 hours -DC azithromycin in favor of doxycycline 100 q.12 -schedule nebs 2.Hypertensive urgency: -resolved -lisinopril increased to 20 mg daily; continue amlodipine -outpatient renal follow up elevated BMI: recommended outpatient weight management clinic follow-up DVT prophylaxis: Lovenox Code status: Full code Quality Stroke Does the patient have a stroke diagnosis?: No VTE Prior VTE?: No VTE Risk Level:: Medical - moderate - high VTE Device Contraindication: Treatment Not Indicated VTE Drug Contraindication: N/A - Med Ordered
[2025-02-07] MEDS: methylPREDNISolone Sod Succ 125 MG/2 ML VIAL 60 MG IVPUSH (17:10)
[2025-02-07] MEDS: Doxycycline Monohydrate 100 MG CAPSULE PO (17:11)
[2025-02-07] MEDS: cefTRIAXone sodium 1 GM VIAL IVPUSH (19:59)
[2025-02-08] VITALS (11 sets, daily range): BP systolic 138–190; BP diastolic 81–111; PULSE 89–115; RESP 15–20; TEMP 36.4–37.3; O2SAT 88–96
[2025-02-08] MEDS: methylPREDNISolone Sod Succ 125 MG/2 ML VIAL 60 MG IVPUSH ×4 (00:02→17:57)
[2025-02-08] MEDS: amLODIPine Besylate 10 MG TABLET PO (06:44)
[2025-02-08] MEDS: Doxycycline Monohydrate 100 MG CAPSULE PO ×2 (06:44→17:56)
--- NOTE | 2025-02-08 07:00 | CA_ITS ---
Transthoracic Echocardiogram Patient (Last, First, Middle): Mariya Gonsales, Gender: Female Date of : 2000 Age: 24 Procedure Date: 02/08/2025 Procedure Type: Transthoracic Echocardiogram Location: [facility] [place] Height: 162. cm Weight: 126.1 kg BSA: 2.24 m2 Heart Rate: 112 bpm BP: 190 / 103 mmHg Presser All Around: ANTONIO Linn MD: Arnulfo Esqueda MD Welding Machine Setter: Tip Trimble MD Symptoms: hypertensive urgency Study Quality: Adequate w contrast ECG Rhythm: Tachycardia Conclusions: - 1. Hyperdynamic LV systolic function with LVEF of greater than 70% with mild concentric left ventricular hypertrophy and severe basal septal hypertrophy with obstructive physiology at rest with a gradient up to 30 mm Hg without any clear dynamic component 2. Cardiac valvular Dopplers within normal limits 3. No gross pericardial effusion Findings Procedure Information Contrast agent, definity, is being given per protocol without apparent complications. Left Ventricle Normal left ventricular cavity size. There is mildly increased left ventricular wall thickness. The left ventricular systolic function is hyperdynamic. The visually estimated ejection fraction is >70%. Spectral Doppler is indicative of an impaired relaxation filling pattern. E/E prime ratio is between 8 and 15 consistent with indeterminate filling pressures. There is severe septal asymmetric hypertrophy. There is increased gradient across the LVOT with a mean gradient of about 30 mm Hg with no clear dynamic obstructive physiology noted with Valsalva. Right Ventricle Normal right ventricular cavity size and systolic function. Atria The left atrium is normal in size. Interatrial shunt cannot be excluded. The right atrium is normal in size. Aortic Valve Normal aortic valve structure and function. There is no aortic valve stenosis. There is no aortic valve regurgitation. Mitral Valve Normal mitral valve structure and function. There is no mitral valve regurgitation. There is no mitral valve stenosis. Pulmonic Valve The pulmonic valve was not well visualized. Tricuspid Valve Tricuspid regurgitation envelope is inadequate for calculation of right ventricular systolic pressure. Normal right atrial pressure. Great Vessels All visible segments of the aorta are normal in size. The pulmonary artery was not well visualized. Venous The inferior vena cava is normal in size and collapses greater than 50% with inspiration. Pericardium/Pleural There is no evidence of pericardial effusion. Prior Study Comparison No prior study available for comparison. Measurements 2D Linear Measurements IVSd: 1.82 0.6-0.9/0.6-1.0 cm LVIDd: 3.74 3.9-5.3/4.2-5.9 cm LVIDd Index: 1.67 2.4-3.2/2.2-3.1 cm/m2 LVIDs: 2.06 2.0-3.6 cm LVPWd: 1.47 0.7-1.1 cm LA Diam: 3.60 2.7-3.8/3.0-4.0 cm LAIDs Index: 1.61 1.5-2.3 cm/m2 LV Mass: 306.92 67-162/88-224 g LV Mass Index: 137.02 43-95/49-115 g/m2 LVOT Diam: 1.90 3.0+(-)1.3 cm 2D Systolic Function EF 4C: 65.40 >55% EF 2C: 82.70 >55% EF BiP: 74.40 >55% Mitral Valve MV VTI: 0.26 MV Pk Akil: 1.23 MV Mn Akil: 0.94 MV Pk Grad: 6.00 MV Mn Grad: 4.00 MV Pk E: 1.07 MV PK A: 1.12 MV Decel Time: 126.00 E/A: 1.00 E'Lateral: 10.40 E'Medial: 6.96 E/E' Med: 15.40 E/E' Lat: 10.30 PHT: 37.00 MVA PHT: 5.95 MVA Continuity: 2.52 Decel Lee: 8.46 Aortic Valve AoV Pk Akil: 1.97 AoV Mn Akil: 1.42 AoV VTI: 0.32 AoV Pk Grad: 16.00 Aov Mn Grad: 9.00 SKYE Cont.VTI: 2.03 LVOT LVOT Pk Akil: 1.40 LVOT Mn Akil: 0.87 LVOT VTI: 0.23 LVOT Pk Grad: 8.00 LVOT Mn Grad: 4.00 LVOT Diam: 1.90 LVOT Area: 2.84 Diastolic Function MV Pk E: 1.07 MV Pk A: 1.12 E/A: 1.00 E'Medial: 6.96 E/E' Med: 15.40 E' Laterial: 10.40 E/E' Lat: 10.30 Right Ventricle TAPSE (mm): 25.90 TVS' Akil: 14.50 Tricuspid Valve RA Press: 3.00 Great Vessels Aorta Sinus of Valsalva: 3.20 2.0-3.5 cm Ao Asc: 2.90 2.1-3.4 cm Ao Arch: 2.40 Pulmonary Valve PV Pk Akil: 1.30 Peak PV Grad: 7.00 Updated in Other Vendor System with Status of Final Tip Trimble MD electronically signed on 02/08/2025 3:46:41 PM with status of Final
[2025-02-08] MEDS: levalbuterol HCL 1.25 MG/3 ML VIAL.NEB INHALE ×5 (07:31→23:27)
[2025-02-08] MEDS: 0.9 % Sodium Chloride Flush 3 ML SYRINGE IVFLUSH ×2 (08:12→17:56)
[2025-02-08] MEDS: lisinopriL 20 MG TABLET PO (08:12)
[2025-02-08] MEDS: Enoxaparin Sodium 40 MG/0.4 ML SYRINGE SUBCUT ×2 (08:12→21:32)
--- NOTE | 2025-02-08 11:17 | P.CONNP_ITS ---
History of Present Illness Reason for Consult Consult date: 02/08/25 Chief Complaint Chief complaint: asthma exacerbation History of Present Illness Narrative: 24-year-old female with elevated BMI, hypertension who presented to the hospital with cough and shortness of breath. She has been having shortness of breath for about 3 days with cough and sputum production prior to presentation without any fevers. She has asthma in the past but has not bothered her in the past 6-8 years. She did not have any chest pain or palpitations, headaches or blurry visions, GI or symptoms at presentation. She has no H/O hypokalemia, hypercalcemia , uncontrolled thyroid disorders or JUAN MANUEL. Her high blood pressure was diagnosed about 6 months ago and has been prescribed lisinopril at the urgent care. She has no primary care currently due to insurance concerns and was about to set up a follow-up with the PCP. She has been getting treated for SOB and hypertension. Her renal functions are normal. Her renal artery doppler showed elevated velocity within the proximal left renal artery concerning for less than 60% renal artery stenosis. Nephrology has been consulted to assist in her clinical care during her current hospital stay. Review of Systems Review of Systems Yes all other systems are reviewed and are negative PMFSH Past Medical History Medical History (Updated 02/08/25 @ 11:25 by Robert Shah MD) Hypertension Obese Surgical History Surgical History Hx of tonsillectomy Social History Social History Household Members: Family Housing: Apartment Are you a primary resident care aid to a significant other at home: No Do you presently have visiting nurse or other home services: No Patient Tobacco Use Status: Never used Tobacco Smoked in Last 30 Days: No e-Cigarette/Vaping Use: Never Used Use of substances other than those prescribed or required for medical reasons: No Currently Displaying Signs/Symptoms of Drug Intoxication Withdrawal: No Do you feel safe in your current relationship?: No Are you made to feel afraid or neglected: No Advance Directives: No Advance Directives Information Provided: No Recently lost weight without trying: No Eating poorly because of decreased appetite: No Nutrition Risks: No Nutritional Risk Patient : No : No Poor oral hygiene: No service: No Meds Allergies Allergy/AdvReac Type Severity Reaction Status Date / Time No Known Allergies Allergy Verified 02/05/25 15:41 Active Medications: Current Medications Acetaminophen (Acetaminophen 325 Mg Tablet) 650 mg PO Q6H PRN PRN Reason: Pain, Mild 1-3,fever,headache Last Admin: 02/06/25 09:08 Dose: 650 mg Amlodipine Besylate (Amlodipine Besylate 10 Mg Tablet) 10 mg PO DAILY [facility]; Protocol Last Admin: 02/08/25 06:44 Dose: 10 mg Benzonatate (Benzonatate 100 Mg Capsule) 100 mg PO TID PRN PRN Reason: Cough Last Admin: 02/07/25 17:11 Dose: 100 mg Calcium Carbonate (Calcium Carbonate 750 Mg Tab.Chew) 750 mg PO Q4H PRN PRN Reason: Heartburn Ceftriaxone Sodium (Ceftriaxone Sodium 1 Gm Vial) 1 gm IVPUSH Q24H [facility] Last Admin: 02/07/25 19:59 Dose: 1 gm Doxycycline Monohydrate (Doxycycline Monohydrate 100 Mg Capsule) 100 mg PO Q12H [facility] Last Admin: 02/08/25 06:44 Dose: 100 mg Enoxaparin Sodium (Enoxaparin Sodium 40 Mg/0.4 Ml Syringe) 40 mg SUBCUT Q12H [facility] Last Admin: 02/08/25 08:12 Dose: 40 mg Levalbuterol HCl (Levalbuterol Hcl 1.25 Mg/3 Ml Vial.Neb) 1.25 mg INHALE Q4H [facility] Last Admin: 02/08/25 11:16 Dose: 1.25 mg Lisinopril (Lisinopril 20 Mg Tablet) 20 mg PO DAILY [facility]; Protocol Last Admin: 02/08/25 08:12 Dose: 20 mg Magnesium Hydroxide (Milk Of Magnesia 30 Ml Oral.Susp) 30 ml PO DAILY PRN PRN Reason: Constipation Melatonin (Melatonin 3 Mg Tablet) 6 mg PO BEDTIME PRN PRN Reason: Insomnia Methylprednisolone Sodium Succinate (Methylprednisolone Sod Succ 125 Mg/2 Ml Vial) 60 mg IVPUSH Q6H [facility] Last Admin: 02/08/25 06:48 Dose: 60 mg Sodium Chloride (0.9 % Sodium Chloride Flush 3 Ml Syringe) 3 ml IVFLUSH QSHIFT [facility] Last Admin: 02/08/25 08:12 Dose: 3 ml Home Medications ?Medication ?Instructions ?Recorded ?Confirmed ?Last Taken ?Type lisinopril 10 mg tablet 10 mg PO DAILY 02/06/25 02/06/25 02/05/25 History Physical Exam Vital Signs: Last Vital Signs Temp 99.2 F 02/08/25 07:26 Pulse 89 02/08/25 07:32 Resp 15 02/08/25 07:32 BP 180/111 H 02/08/25 07:26 Pulse Ox 90 L 02/08/25 07:26 O2 Del Method Room Air 02/08/25 07:26 O2 Flow Rate 2 02/08/25 04:00 BMI result Body Mass Index 47.8 Const General: comfortable and no acute distress HEENT Head: Yes normocephalic Mouth: Normal oral and palatal mucosa present Eyes EOM: EOMs intact bilaterally Neck Neck: Yes supple Resp Auscultation: clear to auscultation bilaterally Cardio Jugular venous distension: no JVD Rate: regular rate GI Palpation (GI): Soft to palpation Auscultation: normal bowel sounds Neuro General: moves all extremities Extrem General: Yes no pedal edema Results Lab Results 02/07/25 07:03 02/07/25 07:03 Lab results: Chemistry 02/05/25 02/06/25 02/07/25 16:12 05:11 07:03 Sodium 141 141 141 Potassium 3.9 3.7 4.2 Carbon Dioxide 22 19 L 20 L BUN 10 12 16 Creatinine 0.74 0.72 0.70 Calcium 9.0 9.2 8.8 Hematology 02/05/25 02/06/25 02/07/25 16:12 05:11 07:03 WBC 9.8 8.4 13.2 H Hgb 14.3 13.2 12.9 Plt Count 272 280 296 Urinalysis 02/05/25 21:01 Urine Color Yellow Urine Appearance Clear Urine pH 6.0 Ur Specific [place] 1.020 Urine Protein Trace Urine Glucose (UA) Negative Urine Ketones 15 Urine Blood Large (3+) H Urine Nitrite Negative Ur Leukocyte Esterase Trace H Urine RBC >20 H Urine WBC 6-10 H Ur Squamous Epith Cells 3-5 Hyaline Casts 0-2 Assessment and Plan (1) Hypertension: Qualifiers: Hypertension type: renovascular hypertension Qualified Code(s): I15.0 - Renovascular hypertension Status: Acute (2) Renal artery stenosis, chilkat: Status: Acute Plan Recent diagnosis of hypertension BP still not at goal; Potassium OK Shall increase lisinopril to 20 mg bid Continue current dose of Amlodipine Shall monitor CHINYERE in the office when D/José Ordered TSH for AM; Likely will need to R/O JUAN MANUEL as outpt Needs a PCP set up prior to D/C Procedures Date of Service Date of Service: 02/08/25
--- NOTE | 2025-02-08 12:15 | MHC.CM.PN ---
EMR REVIEWED, PER NEPHROLOGY PLAN TO INCREASE PT'S LISINOPRIL AND LAB DRAW IN AM, PLAN REMAINS FOR PT TO RETURN HOME SELF CARE, CM WILL CONT TO FOLLOW DC NEEDS.
--- NOTE | 2025-02-08 13:31 | HO.PM.IMPN ---
Subjective Subjective Date of Service: 02/08/25 Interval History: Breathing somewhat improved overnight. Blood pressure still poorly controlled Review of Systems Denies chest pain Admits shortness of breath which has worsened Denies nausea vomiting diarrhea Denies fever chills Physical Exam Vital Signs: Vital Signs: Last Vital Signs Temp 99 F 02/08/25 11:17 Pulse 108 H 02/08/25 11:18 Resp 20 02/08/25 11:18 BP 147/83 H 02/08/25 11:17 Pulse Ox 90 L 02/08/25 11:17 O2 Del Method Room Air 02/08/25 11:17 O2 Flow Rate 2 02/08/25 04:00 BMI result Body Mass Index 47.8 Const: Other: Awake alert no acute distress able to speak in full sentences Resp: Other: Diffuse scattered expiratory wheezes; good aeration to bases Cardio: Other: No S4; positive S1-S2; no S3 murmurs rubs or gallops GI: Other: Soft nontender nondistended normoactive bowel sounds Extrem: Other: No edema bilaterally Objective Data Active Medications Acetaminophen (Acetaminophen 325 Mg Tablet) 650 mg PO Q6H PRN PRN Reason: Pain, Mild 1-3,fever,headache Last Admin: 02/06/25 09:08 Dose: 650 mg Documented By: FARHAN Amlodipine Besylate (Amlodipine Besylate 10 Mg Tablet) 10 mg PO DAILY [facility]; Protocol Last Admin: 02/08/25 06:44 Dose: 10 mg Documented By: DARNELL Benzonatate (Benzonatate 100 Mg Capsule) 100 mg PO TID PRN PRN Reason: Cough Last Admin: 02/07/25 17:11 Dose: 100 mg Documented By: SUMMER Calcium Carbonate (Calcium Carbonate 750 Mg Tab.Chew) 750 mg PO Q4H PRN PRN Reason: Heartburn Ceftriaxone Sodium (Ceftriaxone Sodium 1 Gm Vial) 1 gm IVPUSH Q24H [facility] Last Admin: 02/07/25 19:59 Dose: 1 gm Documented By: DARNELL Doxycycline Monohydrate (Doxycycline Monohydrate 100 Mg Capsule) 100 mg PO Q12H [facility] Last Admin: 02/08/25 06:44 Dose: 100 mg Documented By: DARNELL Enoxaparin Sodium (Enoxaparin Sodium 40 Mg/0.4 Ml Syringe) 40 mg SUBCUT Q12H [facility] Last Admin: 02/08/25 08:12 Dose: 40 mg Documented By: BERNARDA Levalbuterol HCl (Levalbuterol Hcl 1.25 Mg/3 Ml Vial.Neb) 1.25 mg INHALE Q4H [facility] Last Admin: 02/08/25 11:16 Dose: 1.25 mg Documented By: CHANTELLE Lisinopril (Lisinopril 20 Mg Tablet) 20 mg PO DAILY [facility]; Protocol Last Admin: 02/08/25 08:12 Dose: 20 mg Documented By: BERNARDA Magnesium Hydroxide (Milk Of Magnesia 30 Ml Oral.Susp) 30 ml PO DAILY PRN PRN Reason: Constipation Melatonin (Melatonin 3 Mg Tablet) 6 mg PO BEDTIME PRN PRN Reason: Insomnia Methylprednisolone Sodium Succinate (Methylprednisolone Sod Succ 125 Mg/2 Ml Vial) 60 mg IVPUSH Q6H [facility] Last Admin: 02/08/25 06:48 Dose: 60 mg Documented By: DARNELL Sodium Chloride (0.9 % Sodium Chloride Flush 3 Ml Syringe) 3 ml IVFLUSH QSHIFT [facility] Last Admin: 02/08/25 08:12 Dose: 3 ml Documented By: BERNARDA Labs 02/07/25 07:03 02/07/25 07:03 Microbiology Microbiology Results: Microbiology 02/05/25 19:23 Blood Culture - Preliminary Blood - Venous No growth after 48 hours. 02/05/25 19:00 Blood Culture - Preliminary Blood - Venous No growth after 48 hours. 02/05/25 21:01 Urine Culture - Final Urine clean catch - Clean Catch Midstream Assessment and Plan (1) Acute asthma exacerbation: Status: Acute (2) Hypertension: Status: Acute Plan 24-year-old female with a past medical history of elevated BMI, hypertension presented to the hospital with a chief complaint of cough and shortness of breath. admitted for following 1.Acute asthma exacerbation: pneumonia -increase methylprednisolone to 60 mg q.6 hours -DC azithromycin in favor of doxycycline 100 q.12(2) -schedule nebs 2.Hypertensive urgency: -resolved -lisinopril increased to 20 mg BID; continue amlodipine -outpatient renal follow up...appreciated consult elevated BMI: recommended outpatient weight management clinic follow-up DVT prophylaxis: Lovenox Code status: Full code Quality Stroke Does the patient have a stroke diagnosis?: No VTE Prior VTE?: No VTE Risk Level:: Medical - moderate - high VTE Device Contraindication: Treatment Not Indicated VTE Drug Contraindication: N/A - Med Ordered
--- NOTE | 2025-02-08 14:18 | P.CDIM_ITS ---
PROVIDER RESPONSE TEXT: To clarify, the appropriate diagnosis supported by the clinical indicators: Mild intermittent QUERY TEXT: PHYSICIAN'S DOCUMENTATION REQUEST Date of Query: 02/08/2025 07:30 AM EDT Patient Name: Mariya Gonsales Admit Date: 02/06/2025 Dear Xavier Lacey DO, A review of the medical record indicates additional documentation may be needed. Please review below and update the documentation accordingly Clinical indicators: Progress note dated 02/07/25 - Acute asthma exacerbation Increase methylprednisolone to 60 mg q. 6 hours Schedule nebs. Based on the above, please clarify in the Progress Notes further specificity regarding the type of as thma: Mild intermittent Mild persistent Moderate persistent Severe persistent Exercise induced Other (explain) Clinically unable to determine (explain) Thank you, Sarah Doyle, CCS, CDIS Use of terms such as suspected, likely, concern for, or probable (associated with a specific diagnosi s that is being evaluated, monitored, or treated as if it exists) are acceptable and can be coded in the inpatient se tting, when documented at the time of discharge. Please use your independent medical judgment in providing your response. THIS QUERY IS PART OF THE PERMANENT MEDICAL RECORD
--- NOTE | 2025-02-08 14:18 | P.CDIM_ITS ---
PROVIDER RESPONSE TEXT: To clarify, the appropriate diagnosis supported by the clinical indicators: Obesity Due to excess calories QUERY TEXT: PHYSICIAN'S DOCUMENTATION REQUEST Date of Query: 02/08/2025 07:32 AM EDT Patient Name: Mariya Gonsales Admit Date: 02/06/2025 Dear Xavier Lacey DO, A review of the medical record indicates additional documentation may be needed. Please review below and update the documentation accordingly. Clinical Indicators: Height: 5ft 4in Weight: 126.4kg BMI: 47.8 Elevated BMI: recommend outpatient weight management clinic follow-up. If possible, please provide an associated diagnosis related to the abnormal BMI, such as: Obesity Due to excess calories Obesity Drug induced Morbid obesity Severe or Morbid Obesity With alveolar hypoventilation Severe or Morbid Obesity Without alveolar hypoventilation Other (explain) Clinically unable to determine (explain) Thank you, Sarah Doyle, CCS, CDIS Use of terms such as suspected, likely, concern for, or probable (associated with a specific diagnosi s that is being evaluated, monitored, or treated as if it exists) are acceptable and can be coded in the inpatient se tting, when documented at the time of discharge. Please use your independent medical judgment in providing your response. THIS QUERY IS PART OF THE PERMANENT MEDICAL RECORD
--- NOTE | 2025-02-08 16:32 | PM.CNPUL ---
History of Present Illness History of Present Illness Consult date: 02/08/25 Chief complaint: asthma exacerbation Narrative: This is an inpatient pulmonary consultation. The patient is a 24-year-old female with a past medical history of elevated BMI, hypertension presented to the hospital with a chief complaint of cough and shortness of breath. Most of the history obtained from the patient and patient's mom at bedside. Reportedly patient has been having shortness of breath for about 3 days with cough and sputum production. Denies any fevers. Denies any sick contacts. Mentions she has asthma in the past but has not bothered her in the past 6-8 years. Patient mother reports that patient was diagnosed with high blood pressure about 6 months ago and has been prescribed lisinopril at the urgent care. She has no primary care currently because of the insurance concerns currently she fixed her insurance and is about to set up a follow-up with the PCP. In the ER, the patient on presentation noted to have bilateral wheezing, chest x-ray concerning for possible pneumonia-given nebulizers, steroids, antibiotics. Review of Systems Constitutional: Constitutional: Denies chills Eyes: Eyes: Reports no additional eye complaints Cardiovascular: Cardiovascular: Denies chest pain Respiratory: Respiratory: Reports cough and Reports wheezing Gastrointestinal: Gastrointestinal: Reports no additional gastrointestinal complaints Musculoskeletal: Musculoskeletal: Reports no additional musculoskeletal complaints Neurologic: Reports system reviewed and no additional complaints, except as documented Hematologic/Lymphatic: Hematologic/Lymphatic: Reports no additional hematologic/lymphatic complaints Allergic/Immunologic: Allergic/Immunologic: Reports wheezing PMFSH Past Medical History Medical History (Updated 02/08/25 @ 16:36 by Dylan Luque MD) Cough Croup Hypertension Obese Surgical History Surgical History Hx of tonsillectomy Social History Social History Household Members: Family Housing: Apartment Are you a primary lawn care technician to a significant other at home: No Do you presently have visiting nurse or other home services: No Patient Tobacco Use Status: Never used Tobacco Smoked in Last 30 Days: No e-Cigarette/Vaping Use: Never Used Use of substances other than those prescribed or required for medical reasons: No Currently Displaying Signs/Symptoms of Drug Intoxication Withdrawal: No Do you feel safe in your current relationship?: No Are you made to feel afraid or neglected: No Advance Directives: No Advance Directives Information Provided: No Recently lost weight without trying: No Eating poorly because of decreased appetite: No Nutrition Risks: No Nutritional Risk Patient : No : No Poor oral hygiene: No service: No Meds Allergies Allergy/AdvReac Type Severity Reaction Status Date / Time No Known Allergies Allergy Verified 02/05/25 15:41 Active Medications: Current Medications Acetaminophen (Acetaminophen 325 Mg Tablet) 650 mg PO Q6H PRN PRN Reason: Pain, Mild 1-3,fever,headache Last Admin: 02/06/25 09:08 Dose: 650 mg Amlodipine Besylate (Amlodipine Besylate 10 Mg Tablet) 10 mg PO DAILY [facility]; Protocol Last Admin: 02/08/25 06:44 Dose: 10 mg Benzonatate (Benzonatate 100 Mg Capsule) 200 mg PO TID PRN PRN Reason: Cough Calcium Carbonate (Calcium Carbonate 750 Mg Tab.Chew) 750 mg PO Q4H PRN PRN Reason: Heartburn Ceftriaxone Sodium (Ceftriaxone Sodium 1 Gm Vial) 1 gm IVPUSH Q24H [facility] Last Admin: 02/07/25 19:59 Dose: 1 gm Doxycycline Monohydrate (Doxycycline Monohydrate 100 Mg Capsule) 100 mg PO Q12H [facility] Last Admin: 02/08/25 06:44 Dose: 100 mg Enoxaparin Sodium (Enoxaparin Sodium 40 Mg/0.4 Ml Syringe) 40 mg SUBCUT Q12H [facility] Last Admin: 02/08/25 08:12 Dose: 40 mg Guaifenesin/Dextromethorphan (Guaifenesin Dm 600/30 1 Tab Tab.Er.12h) 2 tab PO BID [facility] Levalbuterol HCl (Levalbuterol Hcl 1.25 Mg/3 Ml Vial.Neb) 1.25 mg INHALE Q4H [facility] Last Admin: 02/08/25 15:17 Dose: 1.25 mg Losartan Potassium (Losartan Potassium 50 Mg Tablet) 50 mg PO DAILY [facility]; Protocol Magnesium Hydroxide (Milk Of Magnesia 30 Ml Oral.Susp) 30 ml PO DAILY PRN PRN Reason: Constipation Melatonin (Melatonin 3 Mg Tablet) 6 mg PO BEDTIME PRN PRN Reason: Insomnia Methylprednisolone Sodium Succinate (Methylprednisolone Sod Succ 125 Mg/2 Ml Vial) 60 mg IVPUSH Q6H [facility] Last Admin: 02/08/25 14:00 Dose: 60 mg Sodium Chloride (0.9 % Sodium Chloride Flush 3 Ml Syringe) 3 ml IVFLUSH QSHIFT [facility] Last Admin: 02/08/25 08:12 Dose: 3 ml Home Medications ?Medication ?Instructions ?Recorded ?Confirmed ?Last Taken ?Type lisinopril 10 mg tablet 10 mg PO DAILY 02/06/25 02/06/25 02/05/25 History Physical Exam Vital Signs: Vital Signs: Last Vital Signs Temp 99.1 F 02/08/25 15:00 Pulse 92 02/08/25 15:18 Resp 19 02/08/25 15:18 BP 159/97 H 02/08/25 15:00 Pulse Ox 90 L 02/08/25 15:00 O2 Del Method Room Air 02/08/25 15:00 O2 Flow Rate 2 02/08/25 04:00 BMI result Body Mass Index 47.8 Const: Other: Awake alert no acute distress able to speak in full sentences Resp: Other: Diffuse scattered expiratory wheezes; good aeration to bases Cardio: Other: No S4; positive S1-S2; no S3 murmurs rubs or gallops GI: Other: Soft nontender nondistended normoactive bowel sounds Extrem: Other: No edema bilaterally Results Laboratory Findings 02/07/25 07:03 02/07/25 07:03 ABG, PT/INR, D-dimer: PT/INR, D-dimer PT 13.2 SEC (10.9-12.4) H 02/05/25 16:12 INR 1.1 (0.9-1.1) 02/05/25 16:12 Abnormal lab findings: Abnormal Labs 02/05/25 02/05/25 02/06/25 16:12 21:01 05:11 WBC RBC 5.51 H MCV 79.9 L MCH 26.0 L 25.5 L RDW Immature Gran % (Auto) Neut % (Auto) 79.5 H Lymph % (Auto) 11.5 L Lymph # (Auto) 1.1 L Abs Immat Gran (auto) Absolute Neuts (auto) PT 13.2 H Chloride 111 H 113 H Carbon Dioxide 19 L Anion Gap Random Glucose 142 H Fasting Glucose ALT 33 H C-Reactive Protein 3.39 H Urine Blood Large (3+) H Ur Leukocyte Esterase Trace H Urine RBC >20 H Urine WBC 6-10 H 02/07/25 07:03 WBC 13.2 H RBC MCV MCH 25.7 L RDW 16.1 H Immature Gran % (Auto) 0.5 H Neut % (Auto) 87.1 H Lymph % (Auto) 9.3 L Lymph # (Auto) Abs Immat Gran (auto) 0.06 H Absolute Neuts (auto) 11.5 H PT Chloride 114 H Carbon Dioxide 20 L Anion Gap 11 L Random Glucose Fasting Glucose 139 H ALT 64 H C-Reactive Protein Urine Blood Ur Leukocyte Esterase Urine RBC Urine WBC Microbiology: Microbiology 02/05/25 19:23 Blood - Venous Blood Culture - Preliminary No growth after 48 hours. 02/05/25 19:00 Blood - Venous Blood Culture - Preliminary No growth after 48 hours. 02/05/25 21:01 Urine clean catch - Clean Catch Midstream Urine Culture - Final Assessment and Plan (1) Acute asthma exacerbation: Qualifiers: Asthma persistence: unspecified Asthma severity: unspecified severity Qualified Code(s): J45.901 - Unspecified asthma with (acute) exacerbation Status: Acute (2) Croup: Status: Acute (3) Cough: Status: Acute Plan start Mucinex DM continue tessalon pearls Stop WILMA inhibitor and change to ARB continue solumedrol, ok to change to prednisone tomorrow start Breo continue nebs as needed Procedures Date of Service Date of Service: 02/08/25
[2025-02-08] MEDS: guaiFENesin DM 600/30 1 TAB TAB.ER.12H 2 TAB PO (21:33)
[2025-02-08] MEDS: Benzonatate 100 MG CAPSULE 200 MG PO (21:33)
[2025-02-08] MEDS: cefTRIAXone sodium 1 GM VIAL IVPUSH (21:34)
[2025-02-08] MEDS: Labetalol HCL 100 MG/20 ML VIAL 10 MG IVPUSH (22:11)
[2025-02-09] MEDS: 0.9 % Sodium Chloride Flush 3 ML SYRINGE IVFLUSH ×2 (02:00→09:38)
[2025-02-09] MEDS: methylPREDNISolone Sod Succ 125 MG/2 ML VIAL 60 MG IVPUSH ×3 (02:00→11:44)
[2025-02-09 03:35] VITALS: BP 158/85; PULSE 78; RESP 18; TEMP 36.7; O2SAT 91
[2025-02-09] MEDS: Doxycycline Monohydrate 100 MG CAPSULE PO (06:45)
[2025-02-09 07:26] VITALS: BP 153/90; PULSE 93; RESP 18; TEMP 36.4; O2SAT 93
[2025-02-09] MEDS: levalbuterol HCL 1.25 MG/3 ML VIAL.NEB INHALE ×2 (07:46→11:15)
[2025-02-09] MEDS: Fluticasone/Vilanterol 200/25 BLST.W.DEV 1 PUFF INHALE (07:46)
[2025-02-09 07:48] VITALS: PULSE 93; RESP 18; O2SAT 94
[2025-02-09 08:06] LABS: Thyroid Stimulating Hormone 0.22 uIU/mL (0.32-4.0)
--- NOTE | 2025-02-09 09:07 | P.PNPL_ITS ---
Subjective Subjective Date of Service: 02/09/25 Interval history: The patient was seen on exam. Cough is overall better. She feels better. Blood pressure still initial. I did switch her GER inhibitor to an ARB. I do believe that she has not Ger related cough that is precipitating her symptoms. I would avoid GER inhibitors if possible at this time. Objective Data Labs 02/07/25 07:03 02/07/25 07:03 Labs: Laboratory Results - last 24 hr 02/09/25 06:49 Hold Purple Top SEE NOTE TSH 0.22 L Microbiology Microbiology Results: Microbiology 02/05/25 19:23 Blood - Venous Blood Culture - Preliminary No growth after 48 hours. 02/05/25 19:00 Blood - Venous Blood Culture - Preliminary No growth after 48 hours. 02/05/25 21:01 Urine clean catch - Clean Catch Midstream Urine Culture - Final Review of Systems Constitutional: Denies chills Eyes: Reports no additional eye complaints Cardiovascular: Denies chest pain Respiratory: Reports cough and Reports wheezing Gastrointestinal: Reports no additional gastrointestinal complaints Musculoskeletal: Reports no additional musculoskeletal complaints Reports system reviewed and no additional complaints, except as documented Hematologic/Lymphatic: Reports no additional hematologic/lymphatic complaints Allergic/Immunologic: Reports wheezing Physical Exam 2 Vital Signs: Vital Signs: Last Vital Signs Temp 97.5 F 02/09/25 07:26 Pulse 93 02/09/25 07:48 Resp 18 02/09/25 07:48 BP 153/90 H 02/09/25 07:26 Pulse Ox 93 02/09/25 07:26 O2 Del Method Room Air 02/09/25 07:26 O2 Flow Rate 2 02/08/25 04:00 BMI result Body Mass Index 47.8 Const: Other: Awake alert no acute distress able to speak in full sentences Resp: Other: Dimished Cardio: Other: No S4; positive S1-S2; no S3 murmurs rubs or gallops GI: Other: Soft nontender nondistended normoactive bowel sounds Extrem: Other: No edema bilaterally Procedures Date of Service Date of Service: 02/09/25 Assessment and Plan Assessment and plan (1) Cough: Status: Acute (2) Acute asthma exacerbation: Status: Acute (3) Croup: Status: Acute Plan Continue cough medications Okay to switch over to p.o. prednisone and taper Continue Breo daily Short-acting beta agonist as needed Would avoid GER inhibitors to minimize the risk of cough Time Spent With Patient Time: Total time managing care of this patient today ____ minutes. Progress Note: Quality Stroke Does the patient have a stroke diagnosis?: No
[2025-02-09] MEDS: amLODIPine Besylate 10 MG TABLET PO (09:37)
[2025-02-09] MEDS: Losartan Potassium 50 MG TABLET PO (09:37)
[2025-02-09] MEDS: guaiFENesin DM 600/30 1 TAB TAB.ER.12H 2 TAB PO (09:37)
[2025-02-09] MEDS: Benzonatate 100 MG CAPSULE 200 MG PO (09:37)
[2025-02-09] MEDS: Acetaminophen 325 MG TABLET 650 MG PO (09:37)
[2025-02-09] MEDS: Enoxaparin Sodium 40 MG/0.4 ML SYRINGE SUBCUT (09:38)
[2025-02-09 11:01] VITALS: BP 160/86; PULSE 95; RESP 18; TEMP 36.7; O2SAT 92
[2025-02-09 11:16] VITALS: PULSE 95; RESP 18
--- NOTE | 2025-02-09 11:22 | PM.DS ---
DS: Providers Provider Date of Service: 02/09/25 Date of admission: 02/06/25 03:15 Date of discharge: 02/09/25 Primary care physician: None Physician Consults: 02/06/25 03:19 Consult to Nephrology Routine Consulting Provider: [facility] Reason for consultation: hypertension 02/08/25 11:12 Consult to Pulmonology Routine Consulting Provider: [facility] Reason for consultation: Asthma Has provider been notified: No DS: Diagnosis Discharge Diagnosis (1) Cough: Status: Acute (2) Acute asthma exacerbation: Status: Acute (3) Croup: Status: Acute DS: Summary Hospital Course Hospital Course: 24-year-old female with essentially no history of asthma presents with cough and shortness of breath that has been ongoing for about 3 days. Also notes sputum production. Patient has a developmental delay and mom was very active in history. She was also noted to be hypertensive on admission. She was admitted to telemetry where monitor failed to demonstrate any acute abnormalities. X-ray did demonstrate a right middle lobe pneumonia which was treated with ceftriaxone and doxycycline. Initially her blood pressure was treated with lisinopril and amlodipine and she was seen by renal who agreed with therapies. She was seen in consultation by pulmonology who suggested that the lisinopril be switched out for losartan secondary to cough and wheezing. She tolerated both therapies well. She was also treated with steroids and on the day of discharge she has no O2 requirement and her lungs are clear. At this point in time she is medically acceptable for discharge and will follow up with both renal and pulmonology in their offices Time Attestation Discharge Coordination Time (in mins): 35 Quality: Safe Use of Opioids Does Pt have an Active Cancer Diagnosis on the Problem List?: No Quality: Stroke Does the patient have a stroke diagnosis?: No Physical Exam Vital Signs: Vital Signs: Last Vital Signs Temp 98.0 F 02/09/25 11:01 Pulse 95 02/09/25 11:16 Resp 18 02/09/25 11:16 BP 160/86 H 02/09/25 11:01 Pulse Ox 92 02/09/25 11:01 O2 Del Method Room Air 02/09/25 11:01 O2 Flow Rate 2 02/08/25 04:00 BMI result Body Mass Index 47.8 Const: Other: Awake alert no acute distress able to speak in full sentences Resp: Other: Clear to auscultation all patrick Cardio: Other: No S4; positive S1-S2; no S3 murmurs rubs or gallops GI: Other: Soft nontender nondistended normoactive bowel sounds Extrem: Other: No edema bilaterally DS: Data Data Completed and Pending Labs on day of discharge: Laboratory Results - last 24 hr 02/09/25 06:49 Hold Purple Top SEE NOTE TSH 0.22 L Preliminary micro results at discharge 02/05/25 19:23 Blood Culture - Preliminary Blood - Venous No growth after 48 hours. 02/05/25 19:00 Blood Culture - Preliminary Blood - Venous No growth after 48 hours. Discharge Plan Discharge Anticipated Discharge Date/Time: 02/09/25 11:15 Patient Disposition: Home, Self-Care Discharge Diagnosis: Right middle lobe pneumonia Referrals: [facility] [Provider Group] [facility] Primary Care, [place] [Provider Group] Physician,None [Primary Care Provider] - 1 Week Discharge Medications: New losartan 50 mg Tablet 50 mg PO BID Qty: 60 0RF Protocol: Hold for SBP< HOLD for SBP < : 90 amlodipine 10 mg Tablet 10 mg PO DAILY Qty: 30 0RF Protocol: Hold for SBP< HOLD for SBP < : 90 doxycycline monohydrate 100 mg Capsule 100 mg PO Q12H Qty: 14 0RF Mucus DM 30-600 mg Tablet Extended Release 12 Hr 2 tab PO BID Qty: 120 0RF fluticasone furoate-vilanterol [Breo Ellipta] 200-25 mcg/dose Blister With Device 1 inh inhalation RDAILY Qty: 1 0RF prednisone 10 mg tablet See Rx Instructions .Route .COMPLEX Qty: 45 0RF Rx Instructions: 10 mg orally; 5 tabs p.o. daily x3 days; 4 tabs p.o. daily x3 days; 3 tabs daily x3 days; 2 tabs daily x3 days; 1 tab daily x3 days Discontinued lisinopril 10 mg tablet 10 mg PO DAILY Discharge Orders: Discharge Order (Routine); Ordered 02/09/25 Ordered By: Xavier Lacey Diet: Advance to usual diet Activity on Discharge: As tolerated Stand Alone Forms: Patient Portal Discharge page Print Language: Irish Care Plan Goals: Your meds has been modified. Please take all medicines as ordered. Your lisinopril has been stopped in favor of losartan. Health Concerns: You need to follow up with Dr. Luque (pulmonology) and Dr. Shah (kidney doctor). Their offices will call you for an appointment you have been given a new inhaler; take as directed Plan of Treatment: Arrange follow up with new PCP for next available visit Assessment: See discharge summary
--- NOTE | 2025-02-09 11:28 | MHC.CM.PN ---
Patient has been medically cleared for dc to home today, self care.
== END 2025-02-09 13:45 | disposition home or self-care (01) | DRG 141 ==
LOC: HO.ED 02-06 00:25 → HO.EDOVER 02-06 03:21 → HO.IMC 02-06 07:32
PROVIDERS: Internal Medicine Nephrology; Nurse Practitioner Family; Admitting Provider Hospitalist; Emergency Provider Emergency Medicine; Visit Provider Hospitalist
DX: J45.21 Mild intermittent asthma with (acute) exacerbation (principal); J18.9 Pneumonia, unspecified organism; E66.09 Other obesity due to excess calories; Z68.42 Body mass index [BMI] 45.0-49.9, adult; I16.0 Hypertensive urgency; I70.1 Atherosclerosis of renal artery; T46.4X5A Adverse effect of angiotensin-converting-enzyme inhibitors, initial encounter; I10 Essential (primary) hypertension; J05.0 Acute obstructive laryngitis [croup]; Z71.3 Dietary counseling and surveillance; Z20.822 Contact with and (suspected) exposure to COVID-19; Z79.51 Long term (current) use of inhaled steroids; Z79.899 Other long term (current) drug therapy
CPT/HCPCS: 0241U; 36415; 71046; 76775; 80053; 81001; 81025; 83605; 83690; 84443; 84484; 84702; 85025; 85027; 85379; 85610; 86140; 87040; 87086; 93005; 93306; 93975; 94640; 99222; 99285; J0456; J0696; J1650; J1885; J1920; J2919; J7120; Q9957

== ENCOUNTER → 2025-02-05 15:40 | Outpatient (BNV) | payer OTHER, SELFPAY | PROVIDERS: Visit Provider Radiology Diagnostic Radiology | DX: R06.02 Shortness of breath (principal) | CPT/HCPCS: 71046 ==

== ENCOUNTER → 2025-02-05 15:41 | Outpatient (BNV) | payer OTHER, SELFPAY | PROVIDERS: Admitting Provider Hospitalist; Emergency Provider Emergency Medicine; Visit Provider Internal Medicine Cardiovascular Disease | DX: R00.0 Tachycardia, unspecified (principal) | CPT/HCPCS: 93010 ==

== ENCOUNTER 2025-02-06 03:15 | Outpatient (BNV) | payer OTHER, SELFPAY | END 2025-02-06 07:55 | PROVIDERS: Admitting Provider Hospitalist; Emergency Provider Emergency Medicine; Visit Provider Radiology Diagnostic Radiology | DX: I10 Essential (primary) hypertension (principal) | CPT/HCPCS: 76775; 93975 ==

== ENCOUNTER 2025-02-06 03:15 | Outpatient (BNV) | payer OTHER, SELFPAY | END 2025-02-08 07:00 | PROVIDERS: Admitting Provider Hospitalist; Emergency Provider Emergency Medicine; Visit Provider Internal Medicine Cardiovascular Disease | DX: I42.2 Other hypertrophic cardiomyopathy (principal) | CPT/HCPCS: 93306 ==

== ENCOUNTER → 2025-02-06 03:15 | Outpatient (BNV) | payer OTHER, SELFPAY | PROVIDERS: Admitting Provider Hospitalist; Emergency Provider Emergency Medicine; Visit Provider Hospitalist | DX: J45.901 Unspecified asthma with (acute) exacerbation (principal); J05.0 Acute obstructive laryngitis [croup]; R05.9 Cough, unspecified | CPT/HCPCS: 99223 ==

== ENCOUNTER → 2025-02-06 03:15 | Outpatient (BNV) | payer OTHER, SELFPAY | PROVIDERS: Admitting Provider Hospitalist; Emergency Provider Emergency Medicine; Visit Provider Hospitalist | DX: J45.901 Unspecified asthma with (acute) exacerbation (principal) | CPT/HCPCS: 99223; 99233; 99499 ==

== ENCOUNTER → 2025-02-06 03:15 | Outpatient (BNV) | payer OTHER, SELFPAY | PROVIDERS: Admitting Provider Hospitalist; Emergency Provider Emergency Medicine; Visit Provider Internal Medicine Nephrology | DX: I15.0 Renovascular hypertension (principal); I70.1 Atherosclerosis of renal artery | CPT/HCPCS: 99223 ==

== ENCOUNTER 2025-02-26 13:27 | Outpatient (AMB) | payer OTHER, SELFPAY ==
--- NOTE | 2025-02-26 13:30 | HO.NEPHOV_ITS ---
Vital Signs 02/26/25 13:33 Height 5 ft 1 in Weight 290 lb BMI 54.8 BP 142/80 H Blood Pressure Location Lt femoral Position Sitting Pulse 88 Pulse Source Pulse Oximeter Pulse Oximetry (%) 96 Oxygen Delivery Method Room Air Intake Visit Reasons[place] [facility] Social Media Editor Required: No Accompanied by: Mother Allergies No Known Allergies Allergy (Verified 02/26/25 13:33) Do you need a note to return to daycare/school/sports/work: No HPI Comments Details: 24-year-old female with elevated BMI, hypertension who recently presented to the hospital with cough and shortness of breath. She has been having shortness of breath for about 3 days with cough and sputum production prior to presentation without any fevers. She has asthma in the past but has not bothered her in the past 6-8 years. She did not have any chest pain or palpitations, headaches or blurry visions, GI or symptoms at presentation. She has no H/O hypokalemia, hypercalcemia , uncontrolled thyroid disorders or JUAN MANUEL. Her high blood pressure was diagnosed about 6 months prior to presentation and has been prescribed lisinopril at the urgent care. She has no primary care currently due to insurance concerns and was about to set up a follow-up with the PCP. Her renal functions are normal. Her renal artery doppler showed elevated velocity within the proximal left renal artery concerning for less than 60% renal artery stenosis. She was discharged from hospital and is here to see me in follow up. [facility] Medical History (Updated 02/26/25 @ 13:34 by Robert Shah MD) Hypertension Renal artery stenosis, [place] Cough Croup Obese Surgical History Hx of tonsillectomy Social History Household Members: Family Housing: Apartment Are you a primary caregiver services home to a significant other at home: No Do you presently have visiting nurse or other home services: No Patient Tobacco Use Status: Never used Tobacco e-Cigarette/Vaping Use: Never Used service: No Review of Systems Const All systems reviewed & are unremarkable except as noted in HPI and below Physical Exam Const General: comfortable and no acute distress Orientation/consciousness: patient oriented x3 HEENT Head: Yes normocephalic Mouth: Normal oral and palatal mucosa present Eyes EOM: EOMs intact bilaterally Neck Neck: Yes supple Resp Auscultation: clear to auscultation bilaterally Cardio Jugular venous distension: no JVD Rate: regular rate GI Palpation (GI): Soft to palpation Auscultation: normal bowel sounds General: Yes no CVA tenderness Back/Spine/Pelvis Back: no CVA tenderness Skin General skin exam: no rashes or lesions noted Neuro General: patient oriented x3 and moves all extremities Extrem General: Yes no pedal edema Results Reviewed Nephrology Results: Hgb 12.9 g/dl (12.0-16.0) 02/07/25 WBC 13.2 X10*3/uL (4.8-10.8) H 02/07/25 Plt Count 296 X10*3/uL (160-400) 02/07/25 Sodium 141 mmol/L (135-145) 02/07/25 Potassium 4.2 mmol/L (3.3-5.1) 02/07/25 Chloride 114 mmol/L (96-108) H 02/07/25 Carbon Dioxide 20 mmol/L (22-29) L 02/07/25 BUN 16 mg/dL (9-16) 02/07/25 Creatinine 0.70 mg/dL (0.5-1.4) 02/07/25 Calcium 8.8 mg/dL (8.4-10.2) 02/07/25 Urine Protein Trace mg/dL (Neg-Trace) 02/05/25 Renal US 02/07/25 Assessment & Plan Assessment & Plan (1) Nephrolithiasis: Code(s): N20.0 - Calculus of kidney Category: Medical (2) Renal artery stenosis: Code(s): I70.1 - Atherosclerosis of renal artery Category: Medical (3) Hypertension: Code(s): I10 - Essential (primary) hypertension Category: Medical Qualifiers: Hypertension type: renovascular hypertension Qualified Code(s): I15.0 - Renovascular hypertension Plan Recent diagnosis of hypertension Renal function/ Potassium OK C/W losartan at 50 mg bid Continue Amlodipine 10 mg daily Likely will add HCTZ 25 mg given H/O renal calculi Shall monitor CHINYERE in the office with F/U imaging Will need to R/O JUAN MANUEL as outpt Orders: Orders Electrolytes 3 Months I15.0 - Renovascular hypertension, I70.1 - Atherosclerosis of renal artery, N20.0 - Calculus of kidney Blood Urea Nitrogen 3 Months I15.0 - Renovascular hypertension, I70.1 - Atherosclerosis of renal artery, N20.0 - Calculus of kidney Creatinine 3 Months I15.0 - Renovascular hypertension, I70.1 - Atherosclerosis of renal artery, N20.0 - Calculus of kidney Medications: Changed From losartan 50 mg See Protocol PO BID 60 tabs 0RF To losartan 50 mg PO BID 90 days 180 tabs 4RF Refilled amlodipine 10 mg See Protocol PO DAILY 90 tabs 4RF Coding Level of Care Code Est Pt Level 4 (32746) Diagnoses Nephrolithiasis N20.0 Renal artery stenosis I70.1 Renovascular hypertension I15.0 Hypertension type: renovascular hypertension
[2025-02-26 13:33] VITALS: BP 142/80; PULSE 88; O2SAT 96; BMI 54.8
--- OUTSIDE RECORDS SUMMARY | 2025-02-26 13:44 | XMS_ITS | Encounter Summary ---
Author Organization [facility] Address [address] [place] [phone] Phone Care Team Providers Care Placement Specialist Name Role Phone Unavailable Primary Care Provider Unavailabl e Encounter Details Date Type Department Care Team (Late st Contact Info) Description 01/12/2016 Documentation [facility] [place] [address] [place] [address] Family Medicine, Physician [facility] [place] [address] Social History Tobacco Use Types [...]
--- OUTSIDE RECORDS SUMMARY | 2025-02-26 13:44 | XMS_ITS | Clinical Summary ---
Author Organization [facility] Address [address] [place] [id number] Phone Care Team Providers Care Disc Pad Knockout Worker Name Role Phone Unavailable Primary Care Provider [...]
== END 2025-02-26 13:53 | disposition home or self-care (01) ==
LOC: HO.HKA 13:28
PROVIDERS: Visit Provider Internal Medicine Nephrology
DX: N20.0 Calculus of kidney (principal); I70.1 Atherosclerosis of renal artery; I15.0 Renovascular hypertension
CPT/HCPCS: 99214

== ENCOUNTER → 2025-02-26 13:27 | Outpatient (BNVA) | payer OTHER, SELFPAY | PROVIDERS: Visit Provider Internal Medicine Nephrology | DX: I15.0 Renovascular hypertension (principal); N20.0 Calculus of kidney; I70.1 Atherosclerosis of renal artery | CPT/HCPCS: 99212 ==

== ENCOUNTER 2025-03-09 13:08 | Outpatient (AMB) | payer OTHER, SELFPAY ==
--- NOTE | 2025-03-09 13:40 | MHC.OFFVIS ---
Vital Signs 03/09/25 13:41 Height 5 ft 1 in Weight 293 lb 2 oz BMI 55.4 BP 128/80 Blood Pressure Location Rt radial Position Sitting Pulse 94 Pulse Source Pulse Oximeter Pulse Oximetry (%) 99 Oxygen Delivery Method Room Air Intake Visit Reasons: Asthma/C DC Follow Up Allergies No Known Allergies Allergy (Verified 03/09/25 13:44) HPI HPI Asthma/C DC Follow Up: Details: Mariya is a pleasant 24-year-old female, never smoker, with underlying asthma and hypertension. Today she is accompanied by her mom. She was referred by [facility] after recent admission 02/05-02/09/25 due to RML PNA and acute asthma exacerbation. She was a preemie, 28 weeks, and reports history of severe asthma as a child, however over the last 7 years had it has not had any respiratory symptoms until recent pneumonia. She presented to the ED with worsening productive cough and dyspnea, chest x-ray revealed right middle lobe opacities and treated with steroids, nebulized therapy, ceftriaxone and doxycycline. She also had difficulties with blood pressure control during this time recently evaluated by Nephrology, now on losartan and amlodipine. Upon discharge she was started on Breo as she continued with dyspnea on exertion, dry cough and intermittent wheezing. She feels symptoms are well controlled with current dose of Breo. She does note 40 lb weight gain over the last year which she attributes to decreased activity. She denies seasonal allergies or secondhand smoke exposure. She reports father with history of asthma. She also reports history of loud snoring, daytime fatigue and witnessed apneas. Mom with history of sleep apnea. [facility] Medical History (Updated 03/10/25 @ 09:04 by Merlene Garcia NP) Hypertension Renal artery stenosis, [place] Cough Croup Obese Surgical History Hx of tonsillectomy Social History Household Members: Family Housing: Apartment Are you a primary daycare manager to a significant other at home: No Do you presently have visiting nurse or other home services: No Patient Tobacco Use Status: Never used Tobacco e-Cigarette/Vaping Use: Never Used service: No Review of Systems Const Denies chills, Denies excessive sweating, Denies fever(s), Denies headache(s) and Denies night sweats Eyes Denies dry eyes, Denies irritation and Denies itchy eyes ENT Reports Normal hearing present, Denies headache(s), Denies nasal congestion, Denies nasal discharge, Denies post nasal drip and Denies sore throat Card Denies chest pain, Denies chest pain at rest, Denies chest pain with activity, Denies claudication, Denies leg edema, Denies dyspnea, Denies orthopnea and Denies paroxysmal nocturnal dyspnea Resp Denies chest congestion, Denies excessive phlegm production, Denies pain on inspiration, Denies pain with cough, Denies dyspnea and Denies stridor Musc Denies myalgias Neuro Reports Normal hearing present and Denies headache(s) Endo Denies excessive sweating Jesse/Lymph Denies lymphadenopathy Aller/Immun Denies itchy eyes and Denies seasonal rhinorrhea Physical Exam Vital Signs: Last Vital Signs Pulse 94 03/09/25 13:41 BP 128/80 03/09/25 13:41 Pulse Ox 99 03/09/25 13:41 Oxygen Delivery Method Room Air 03/09/25 13:41 BMI result Body Mass Index 55.4 Const General: cooperative, healthy appearing, comfortable, no acute distress, well developed and alert Nutritional Appearance: obese Orientation/consciousness: patient oriented x3 Limitations: no limitations HEENT Head: Yes normal to inspection, Yes normocephalic and Yes atraumatic Ears: hearing grossly normal bilaterally and external ears normal Eyes General: appearance normal, both eyes and all related structures Eyelids: Yes eyelids normal Sclerae: sclerae normal EOM: EOMs intact bilaterally Neck Neck: Yes normal visual inspection and Yes no lymphadenopathy Lymphatic: no lymphadenopathy noted Chest Chest palpation & inspection: normal inspection of the chest Resp Effort & Inspection: normal respiratory effort, able to speak in complete sentences, no audible wheezes, no cough, no stridor, not tachypneic, no tripod positioning and no use of accessory muscles Auscultation: clear to auscultation bilaterally Cardio Jugular venous distension: no JVD Rate: regular rate Rhythm: regular rhythm Skin Other: warm, dry General skin exam: no rashes or lesions noted Neuro General: patient oriented x3 Cranial nerves: Yes Normal hearing present Cognition (Neuro): normal cognition Gait exam (Neuro): Normal gait present Extrem General: Yes normal to inspection, Yes capillary refill normal, Yes no clubbing, cyanosis or edema and Yes no pedal edema Psych Appearance: grossly normal and well kempt Speech and movement: Normal speech and movement present and Clear speech present Affect: normal affect Attitude: cooperative Thought process: Normal thought process present Thought content: Normal thought content present Insight: Good insight present (Psych) Judgement: Good judgement present (Psych) Assessment & Plan Assessment & Plan (1) Asthma: Code(s): J45.909 - Unspecified asthma, uncomplicated Category: Medical (2) History of recent pneumonia: Code(s): Z87.01 - Personal history of pneumonia (recurrent) Category: Medical (3) Daytime somnolence: Code(s): R40.0 - Somnolence Category: Medical Plan Mariya presents for pulmonary evaluation with known history of asthma and recent pneumonia. She reports symptoms have been well-controlled on Breo 200 mcg, advised to continue and will send in refills. Will also send albuterol MDI for p.r.n. use. Will send for PFT to assess severity of obstructive/restrictive defect. Will send for chest x-ray in 4 weeks to assess resolution of pneumonia. Will send for home sleep study as she reports symptoms suggestive of JUAN MANUEL. All questions were answered and patient is in agreement of plan. Will follow-up in 8-10 weeks or sooner if needed. Orders: Orders XR chest 2V 03/09/25 Z87.01 - Personal history of pneumonia (recurrent) PFT pulmonary function test Today J45.909 - Unspecified asthma, uncomplicated RT home sleep study Today R40.0 - Somnolence Medications: New fluticasone furoate-vilanterol 200-25 mcg/dose (Breo Ellipta) 1 inh inhalation DAILY 60 ea 6RF albuterol sulfate 90 mcg/actuation 2 puffs inhalation Q4-6H PRN 1 ea 6RF shortness of breath or wheezing Discontinued fluticasone furoate-vilanterol 200-25 mcg/dose (Breo Ellipta) Discontinued Reason: Patient Completed Course 1 inh inhalation RDAILY 1 ea 0RF Coding Level of Care Code New Pt Level 4 (88646) Diagnoses Asthma J45.909 History of recent pneumonia Z87. Daytime somnolence R40.0
[2025-03-09 13:41] VITALS: BP 128/80; PULSE 94; O2SAT 99; BMI 55.4
--- OUTSIDE RECORDS SUMMARY | 2025-03-09 14:10 | XMS_ITS | Clinical Summary ---
Author Organization [facility] Address [address] [place] [phone] Phone Care Team Providers Care Venetian Blind Cleaner And Repairer Name Role Phone Unavailable Primary Care Provider [...]
--- OUTSIDE RECORDS SUMMARY | 2025-03-09 14:10 | XMS_ITS | Encounter Summary ---
Author Organization [facility] Address [address] [place] [phone] Phone Care Team Providers Care Technology Professional Name Role Phone Unavailable Primary Care Provider Unavailabl e Encounter Details Date Type Department Care Team (Late st Contact Info) Description 01/12/2016 Documentation [facility] Family Medicine [address] [place] [address] Family Medicine, Physician [facility] [place] [address] Social History Tobacco Use Types [...]
== END 2025-03-09 14:06 | disposition home or self-care (01) ==
PROVIDERS: Referring Provider Hospitalist; Visit Provider Nurse Practitioner Family
DX: J45.909 Unspecified asthma, uncomplicated (principal); Z87.01 Personal history of pneumonia (recurrent); R40.0 Somnolence
CPT/HCPCS: 99204

== ENCOUNTER → 2025-03-09 13:08 | Outpatient (BNVA) | payer OTHER, SELFPAY | PROVIDERS: Referring Provider Hospitalist; Visit Provider Nurse Practitioner Family | DX: J45.909 Unspecified asthma, uncomplicated (principal); R40.0 Somnolence; Z87.01 Personal history of pneumonia (recurrent) | CPT/HCPCS: 99202 ==

== ENCOUNTER 2025-05-26 13:39 | Outpatient (AMB) | payer OTHER, SELFPAY ==
--- NOTE | 2025-05-26 13:41 | MHC.OFFVIS ---
Intake Visit Reasons: 6 month follow up/ US Intake Note: Patient is present for 6M/US Urology Medication:NONE Antibiotic Allergy:NONE Blood Thinner:NONE Railroad Wheels And Axles Inspector Required: No Allergies No Known Allergies Allergy (Verified 05/26/25 13:54) Medication List - Last Reconciled 05/26/25 by YASIR Stevenson albuterol sulfate 90 mcg/actuation 2 puffs inhalation Q4-6H PRN amlodipine 10 mg See Protocol PO DAILY dextromethorphan-guaifenesin 30-600 mg (Mucus DM) 2 tabs PO BID fluticasone furoate-vilanterol 200-25 mcg/dose (Breo Ellipta) 1 inh inhalation DAILY losartan 50 mg PO BID 90 days HPI Comments Details: Mariya is a pleasant 25 year old female. She has a past medical history of hypertension. She is being followed up on today via video telehealth for her history of nephrolithiasis. In discussion with the patient today she denies having had any bothersome urinary issues or concerns. She has recently followed up with Nephrology and has recently been diagnosed with hypertension. Recent renal imaging results were reviewed 02/19 bilateral kidneys with no focal lesions, nephrolithiasis, and or hydronephrosis noted bilaterally. Per radiology report. Elevated velocity of the left renal artery otherwise unremarkable examination. She reports she has since followed up with Nephrology regarding this issue. She denies urinary urgency, urinary frequency, incontinence, nocturia, hematuria, dysuria, foul smelling urine, changes to urinary stream, flank pain, fever, and or chills. She is happy with her current voiding parameters. All questions were answered. We discussed the importance of adequate hydration relation to nephrolithiasis as well as overall health and well-being. She otherwise offers no other issues or concerns at this time. PREVIOUS OFFICE NOTE: Nephrolithiasis Recent emergency room visit Imaging - 07/21 Left kidney revealed mild hydroureteronephrosis due to obstruction of left renal pelvis by 0.7 x 0.9 cm calculus with attenuation of 1380 HU there is very mild perinephric stranding Stone composition - Calcium Oxalate Monohydrate ([place]) 95%Carbonate Apatite ([place]ite) 5% PFSH Medical History Hypertension Renal artery stenosis, [place] Cough Croup Obese Surgical History Hx of tonsillectomy Social History Household Members: Family Housing: Apartment Are you a primary ambulatory care coordinator to a significant other at home: No Do you presently have visiting nurse or other home services: No Patient Tobacco Use Status: Never used Tobacco e-Cigarette/Vaping Use: Never Used service: No Review of Systems Const All systems reviewed & are unremarkable except as noted in HPI and below Physical Exam Const General: cooperative, healthy appearing, comfortable, no acute distress, well developed, alert and awake Nutritional Appearance: overweight Orientation/consciousness: patient oriented x3 Resp Effort & Inspection: normal respiratory effort and able to speak in complete sentences Neuro General: patient oriented x3 Psych Appearance: well kempt Attitude: cooperative Insight: Fair insight present (Psych) Judgement: Fair judgement present (Psych) Telehealth Telehealth Telehealth Platform: [employer] Location of provider rendering services: practice address Location of patient: address on file Patient Identification confirmed using: Name, : Yes Telehealth method: video Patient verbally consented to treatment: Yes Patient verbally consented to billing insurance company: Yes Patient informed of any privacy concerns related to visit: Yes Minutes spent on Phone/Video with Pt.: 15 Assessment & Plan Assessment & Plan (1) Nephrolithiasis: Code(s): N20.0 - Calculus of kidney Category: Medical Plan Recent renal imaging results reviewed with the patient today; as noted above. She currently denies any bothersome urinary issues or concerns. She reports be happy with current voiding parameters. We discussed the importance of adequate hydration relation to nephrolithiasis as well as overall health and well-being. Continue adding 1 oz of lemon juice to water daily. Will continue with surveillance monitoring. All questions were answered. Continue follow-up with nephrology as planned Will obtain renal ultrasound in 6 months. Follow-up in 6 months with imaging to be completed prior; or sooner with any issues, concerns, and or questions. Orders: Orders US renal BI 6 Months N20.0 - Calculus of kidney Patient Instructions: The patient had an opportunity to ask questions regarding the treatment plan. All questions were answered. Physical exam, labs, and imaging were discussed and reviewed in detail. As well as risks, benefits, and discussion of treatment choices. No major barriers to understanding were identified. The patient expressed understanding and agreement with the above treatment plan. The patient was made aware they should contact our office by phone for worsening of their current condition, the appearance of new symptoms, or with any questions or concerns. Compliance is encouraged with any medications and follow up testing that is ordered. It is a privilege to be allowed the opportunity to participate in? your urological care.? Again, if you have any questions or concerns If you have any questions or concerns please do not hesitate to contact me. The office is [phone]. This note is constructed using voice recognition software. While every effort has been made to ensure accuracy mobility manager errors may have been included. Yours sincerely, YASIR Stevenson Coding Level of Care Code Tele Est Pt Level 3 (93290) Diagnoses Nephrolithiasis N20.0
--- OUTSIDE RECORDS SUMMARY | 2025-05-26 14:19 | XMS_ITS | Clinical Summary ---
Author Organization [facility] Address [address] [place] [phone] Phone Care Team Providers Care Mat Machine Operator Name Role Phone Unavailable Primary Care Provider [...] of 3 - 19+ 3-dose series) 2021 COVID-19 Vaccine (1 - 2023-2 5 season) 2024 Influenza Vaccines (#1) 2025 HIB Vaccines Aged Out No longer eligi [...]
== END 2025-05-26 14:56 | disposition home or self-care (01) ==
LOC: HO.HUSH 13:39
PROVIDERS: Visit Provider Nurse Practitioner Family
DX: N20.0 Calculus of kidney (principal)
CPT/HCPCS: 99213

== ENCOUNTER 2025-06-11 13:59 | Outpatient (REF) | payer SELFPAY ==
--- NOTE | 2025-06-11 14:01 | PFT_ITS ---
Flows: FEV1: 97 % of predicted at 2.90 L FVC: 94 % of predicted at 3.20 L FEV1/FVC: 91 % Bronchodilator response: Absent Patient was not able to follow instructions for lung volumes and diffusion capacity testing. Impression: Normal spirometry, no bronchodilator response. Patient was unable to follow directions for lung volumes and diffusion capacity testing. MTDD
--- OUTSIDE RECORDS SUMMARY | 2025-06-11 14:03 | XMS_ITS | Clinical Summary ---
Author Organization [facility] Address [address] [place] [id number] Phone Care Team Providers Care Quality Assurance Lab Technician Name Role Phone Unavailable Primary Care Provider [...]
[2025-06-11 14:47] VITALS: PULSE 86; O2SAT 99
== END 2025-06-11 14:00 | disposition home or self-care (01) ==
LOC: HO.RESP 13:59
PROVIDERS: Visit Provider Nurse Practitioner Family
DX: J45.909 Unspecified asthma, uncomplicated (principal)
CPT/HCPCS: 94010; 94640

== ENCOUNTER → 2025-06-11 14:01 | Outpatient (BNV) | payer OTHER, SELFPAY | PROVIDERS: Visit Provider Internal Medicine Pulmonary Disease | DX: J45.909 Unspecified asthma, uncomplicated (principal) | CPT/HCPCS: 94060 ==